=== PATIENT | female | born 1975 | race Caucasian/White ===

== ENCOUNTER 2019-10-01 10:45 | Outpatient (CLI) | payer OTHER, SELFPAY ==
--- NOTE | ~2019-10-01 | US_ITS ---
EXAMINATION: US abdomen complete EXAM DATE: 10/01/2019 11:24 INDICATION: Secondary thrombocytopenia. Splenomegaly. TECHNIQUE: Multiple grayscale and Doppler images of the complete abdomen were obtained (by a technolo gist who performed the scan) and subsequently reviewed. There is no prior study for comparison. FINDINGS: The abdominal aorta is normal in caliber. Visualized portion IVC is patent. The pancreatic head a nd body are normal in appearance. The pancreatic tail is not visualized. The liver has normal echogenicity and contour. There are no focal liver lesions identified. There is no evidence of intrahepatic biliary duct dilation. Portal venous flow was seen in the hepatopedal , normal direction and has normal Doppler waveform. Common bile duct measures 5 mm, which is normal. The gallbladder wall is normal in thickness, with ex pected amount of distention. No sonographic evidence of pericholecystic fluid. There are probably s everal tiny polyps up to 3 mm in size, not likely clinically significant. Technologist performing ex am reports patient did not demonstrate sonographic Marks's sign. Please note that this sign is less reliable in patients who have received pain medication. Right kidney: There is normal contour and echogenicity. It measures 10.7 x 3.9 x 4.5 centimeters. There are no focal renal lesions identified. There is no hydronephrosis. Left kidney: There is normal contour and echogenicity. It measures 12.7 x 3.8 x 4.9 centimeters. T here are no focal renal lesions identified. There is no hydronephrosis. The spleen measures 11.4 centimeters and is morphologically normal. IMPRESSION: 1. Tiny gallbladder polyps not likely clinically significant. Reviewed, dictated and finalized at location B. TRONIC WIRER
== END 2019-10-01 10:46 | disposition home or self-care (01) ==
LOC: ANHIMG 10:47
PROVIDERS: PCP Registered Nurse; Visit Provider Internal Medicine Hematology & Oncology
DX: D69.59 Other secondary thrombocytopenia (principal); R16.1 Splenomegaly, not elsewhere classified
CPT/HCPCS: 76700

== ENCOUNTER 2019-10-15 14:33 | Outpatient (CLI) | payer OTHER, SELFPAY ==
[2019-10-15 16:53] LABS: Iron 93 ug/dL (37-170)
[2019-10-15 17:04] LABS: Percent Iron Saturation 33 % (20-50)
[2019-10-19 02:01] LABS: Platelet Antibody, Direct IgG NEGATIVE (NEGATIVE)
== END 2019-10-15 14:34 | disposition home or self-care (01) ==
LOC: ANHLAB 14:34
PROVIDERS: PCP Registered Nurse; Visit Provider Internal Medicine Hematology & Oncology
DX: D69.59 Other secondary thrombocytopenia (principal)
CPT/HCPCS: 36415; 82728; 83540; 83550; 86023

== ENCOUNTER 2020-08-30 06:48 | Outpatient (NON) | payer OTHER, SELFPAY ==
[2020-08-30 19:32] LABS: SARS-CoV-2 RNA PCR Negative
== END 2020-08-30 06:49 ==
PROVIDERS: PCP Registered Nurse; Visit Provider Registered Nurse
DX: Z20.822 Contact with and (suspected) exposure to COVID-19 (principal); R51.9 Headache, unspecified
CPT/HCPCS: C9803; U0003

== ENCOUNTER → 2020-09-08 15:07 | Outpatient (CLI) | payer OTHER, SELFPAY ==
--- NOTE | ~2020-09-08 | MR_ITS ---
EXAMINATION: MR brain/brain stem wo/w con DATE: 09/08/2020 16:02 INDICATION: Headache without orthostatic component, not elsewhere classified. TECHNIQUE: Magnetic resonance imaging (MRI) of the brain and brainstem was performed without and with 19 mL MultiHance intravenous contrast. Sequences included sagittal and axial T1-weighted FSE, axial diffusion-weighted FS EPI, axial T2*-weighted GRE, axial T2-weighted FLAIR Propeller, and axial T2-we ighted Propeller. Postcontrast sequences included axial and coronal T1-weighted FSE. Apparent diffusi on coefficient (ADC) maps were created. COMPARISON: Head CT 05/23/2012 FINDINGS: There is no intracranial hemorrhage, acute infarction, or abnormal intracranial mass lesion . The ventricles are normal in size. The paranasal sinuses are clear. The orbits are normal. The mast oid air cells are normal. IMPRESSION: 1. Normal brain. Reviewed, dictated and finalized at location B. T CYTOLOGIST IMPRESSION: 1. Normal brain.
[2020-09-08 15:42] LABS: Estimated Glomerular Filt Rate > 60
== END ==
PROVIDERS: Visit Provider Obstetrics & Gynecology
DX: R51.9 Headache, unspecified (principal)
CPT/HCPCS: 70553; A9577

== ENCOUNTER → 2020-11-22 08:08 | Outpatient (CLI) | payer OTHER, SELFPAY ==
--- NOTE | ~2020-11-22 | MR_ITS ---
EXAMINATION: MR knee LT wo con DATE: 11/22/2020 08:56 INDICATION: Left knee pain. TECHNIQUE: Magnetic resonance imaging (MRI) of the left knee was performed without intravenous contra st. Sequences included axial PD-weighted FS FSE, coronal PD-weighted FSE and PD-weighted FS FSE, sagi ttal PD-weighted FSE, and sagittal T2-weighted FS FSE. COMPARISON: Left knee radiographs 10/29/20 FINDINGS: Medial compartment: There is a horizontal tear of posterior horn of medial meniscus with paralabral cysts measuring up to 9 mm. There is cartilage surface irregularity of tibial condyle. There is shallow partial-thickness cartilage loss of femoral condyle involving the central articular surface with mild subchondral edema -like marrow signal intensity. There are marginal osteophytes. Lateral compartment: Lateral meniscus is normal. Femoral cartilage is normal. There is shallow partial-thickness cartilage loss of tibial condyle involving the central and posterior articular surface. Osteophytes are noted. Patellofemoral compartment: There is cartilage surface irregularity of patella. There is full-thickness cartilage loss of central and lateral trochlea with mild subchondral edema-like marrow signal intensity. There is partial-thic kness cartilage loss of medial trochlea. Osteophytes are noted. Ligaments and tendons: The anterior and posterior cruciate ligaments are normal. Medial collateral ligament is intact. There are changes of prior sprain of fibular collateral ligament characterized by thickening and increased signal intensity proximally. There is mild patellar tendinopathy. Fluid: There is no knee joint effusion. There is trace fluid in a Chin's cyst. There is mild superficial in frapatellar bursitis. IMPRESSION: 1. Severe chondrosis of patellofemoral compartment and mild chondrosis of medial and lateral compartm ents. 2. Tear of medial meniscus. Reviewed, dictated and finalized at location A. IMPRESSION: 1. Severe chondrosis of patellofemoral compartment and mild chondrosis of media l and lateral compartments. 2. Tear of medial meniscus.
== END ==
PROVIDERS: Visit Provider Orthopaedic Surgery
DX: M25.562 Pain in left knee (principal); G89.29 Other chronic pain; M22.2X2 Patellofemoral disorders, left knee; S83.242A Other tear of medial meniscus, current injury, left knee, initial encounter
CPT/HCPCS: 73721

== ENCOUNTER → 2020-12-19 02:10 | Outpatient (CLI) | payer OTHER, SELFPAY ==
[2020-12-19 19:11] LABS: SARS-CoV-2 RNA PCR Negative
== END ==
PROVIDERS: PCP Registered Nurse; Visit Provider Orthopaedic Surgery
DX: Z01.812 Encounter for preprocedural laboratory examination (principal); Z20.822 Contact with and (suspected) exposure to COVID-19
CPT/HCPCS: C9803; U0003; U0005

== ENCOUNTER 2020-12-22 02:12 | Day surgery (SDC) | payer OTHER, SELFPAY ==
[2020-12-15 08:29] VITALS: BMI 34.4
[2020-12-22] VITALS (10 sets, daily range): BP systolic 107–138; BP diastolic 72–88; PULSE 74–98; RESP 12–18; TEMP 36.2–36.3; O2SAT 97–100
[2020-12-22] MEDS: LACTATED RINGERS 1,000 ML 30 ML IV CONT ×2 (07:55→09:59)
[2020-12-22] MEDS: ACETAMINOPHEN 500 MG TABLET 1000 MG PO (07:56)
[2020-12-22] MEDS: KETOROLAC 15 MG/ML VIAL (*BKC) IV PUSH (07:56)
--- NOTE | 2020-12-22 08:10 | WPDANESEPPF ---
Anes - Initial Pre Proc Eval Procedure: Operation Date: 12/22/20 09:00 Proposed Procedures p Left Knee Arthroscopy with Partial Meniscectomy - Adrien Browne MD Date/Time: 12/22/20 08:10 Surgeon: Adrien Browne MD Pre Op Diagnosis: left knee medial meniscal tear Patient Data Age: 45 Gender: F Height: 1.65 m Weight: 94 kg Allergies Allergy/AdvReac Type Severity Reaction Status Date / Time No Known Allergies Allergy Unverified 12/15/20 08:25 Home Medications Medication Instructions Recorded Confirmed Type meloxicam 15 mg tablet 15 mg PO DAILY #30 tablet 10/29/20 12/15/20 Rx acetaminophen 650 mg 650 mg PO BID 11/25/20 12/15/20 History tablet,extended release cholecalciferol (vitamin D3) 75 mcg PO DAILY 12/15/20 12/15/20 History [Vitamin D3] cyanocobalamin-liver extract 1 tablet PO DAILY 12/15/20 12/15/20 History [Vitamin P57-Qfdod] fexofenadine-pseudoephedrine 1 tablet PO DAILY PRN 12/15/20 12/15/20 History [Sintia-D 12 Hour] ysszijob-tujtq-esf6-C-stephanie-bor 1 tablet PO DAILY 12/15/20 12/15/20 History [Otpserftxnt-Kfeso-WNH Complex] omega-3 fatty acids-vitamin E 2 cap PO DAILY 12/15/20 12/15/20 History [Fish Oil] Patient hx anesthesia problems: none Family hx anesthesia problems: none PMFSH Past Medical History Medical History (Updated 12/19/20 @ 15:33 by Ivan Tran DO) Anxiety Degenerative arthritis of knee, bilateral Headache Tear of medial meniscus of left knee Surgical History Surgical History (Updated 12/19/20 @ 15:33 by Ivan Tran DO) History of arthroscopic knee surgery right x2, left x1 History of hysterectomy Family History Family History Other Alcohol abuse Cancer Heart disease Social History Social History Smoking status: Never smoker Second hand tobacco smoke exposure: Yes Alcohol intake: current 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 Substance use: current Other substance usage details: CBD CARAMELS Living arrangements: with family 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, 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 Gender identity (if verbalized by the patient): Female Spiritual care concerns: No Anes - Eval Final PreProcedure Day of Procedure 12/22/20 08:10 Patient weight: obese Heart: regular rate and rhythm Lungs: clear to auscultation and normal air movement Airway: Mallampati scale class II Neurological: alert and oriented Last oral intake: >/= 8 hours ASA classification: II Emergent: no Anesthetic plan: proceed Anesthesia type and monitoring: general LMA and standard monitoring Informed Consent: The patient's anesthetic plan and its attendant risks and benefits were discussed with the patient/family/POA. Questions were solicited and answers provided to the satisfaction of the patient/family/POA.
--- NOTE | 2020-12-22 08:38 | WPDHPUPDATE1 ---
History and Physical Update Update Date/Time: 12/22/20 08:38 History and Physical has been reviewed, including an updated exam of the patient. There are NO changes in the patient's condition. Risks, benefits, and alternatives have been discussed and questions answered. Patient agrees to proceed with procedure.
[2020-12-22] MEDS: ceFAZolin 2 GM/D5W 50 ML 2 GM/50 ML BAG IVPB (08:55)
--- NOTE | 2020-12-22 10:06 | P.OP_ITS ---
Procedure Note - Detailed Date of procedure: 12/22/20 Pre-op diagnosis: left knee medial meniscal tear Post-op diagnosis: other (Left knee medial meniscal tear and extensive synovitis) Procedure performed: Left knee arthroscopy, partial medial meniscectomy, extensive synovectomy Description of procedure: The patient was identified and proper site identified. She was taken to the operating room and transferred to the OR table placing her supine taking care to pad the torso and extremities. After general anesthetic induction and intubation, a nonsterile tourniquet was placed high on the left thigh but it was not inflated. The left lower extremity was positioned, prepped and draped in usual sterile fashion. 10 cc of 1% lidocaine was injected into the subcutaneous tissue in the area of the portals at start of the procedure, and an additional 10 at the end. The portals were established and the arthroscopy was carried out. Articular cartilage in the lateral compartment was in excellent shape. Anteriorly there was grade 3 changes in the femoral trochlea, grade 2 on the undersurface of the patella. There is grade 2 changes through the medial compartment articular cartilage. There was complex tearing of the medial meniscus posterior horn into the midbody. This was contoured back to stable rim with basket forceps and a shaver. There was an extensive amount of synovitis along the medial femoral condyle throughout the m edial gutter which was quite hyperemic. This area was extensively debrided with the shaver and the ArthroCare Wand used for hemostasis. The knee was flushed with a copious amount of arthroscopic fluid and equipment was removed. Portals were closed with three O nylon suture and a sterile dressing was applied. She tolerated the procedure well, was awakened, extubated and taken to recovery area in stable condition. There were no known intraoperative complications. Estimated blood loss was negligible. She received perioperative antibiotics. Anesthesia: GLMA Surgeon: Adrien Browne MD Estimated blood loss (mL): 15 Tourniquet time (min): 0 Drains: No Packing: No Pathology: none sent Complications: No immediate complications Condition: stable Disposition: PACU
[2020-12-22] MEDS: fentaNYL CITRATE INJ (*CRX) 100 MCG/2 ML VIAL 25 MCG IV PUSH ×3 (10:08→11:01)
[2020-12-22] MEDS: oxyCODONE HCL (*CRX) 5 MG TAB IR PO (11:40)
== END 2020-12-22 12:23 | disposition home or self-care (01) ==
PROVIDERS: PCP Registered Nurse; Visit Provider Orthopaedic Surgery
PROC: (CPT 29870; principal; 2020-12-22 09:00)
DX: S83.232A Complex tear of medial meniscus, current injury, left knee, initial encounter (principal); M65.9 Synovitis and tenosynovitis, unspecified; M17.12 Unilateral primary osteoarthritis, left knee; E66.9 Obesity, unspecified; Z68.34 Body mass index [BMI] 34.0-34.9, adult; Z87.891 Personal history of nicotine dependence; X58.XXXA Exposure to other specified factors, initial encounter; Y93.9 Activity, unspecified; Y92.9 Unspecified place or not applicable; Y99.9 Unspecified external cause status
CPT/HCPCS: 29881; A9270; C9803; J0690; J1100; J1170; J1200; J1885; J2250; J2405; J2704; J3010; J7120; U0003; U0005

== ENCOUNTER 2021-01-07 08:30 | Outpatient (RCR) | payer OTHER, SELFPAY ==
--- NOTE | 2020-12-24 13:40 | PTOPEVAL ---
PHYSICAL THERAPY EVALUATION Thank you for referring Lovely Torres to [facility].? Lovely was evaluated for the dx of left knee MT/OA with knee scope. The patient is scheduled to be seen for therapy?2 x/week for 4 weeks. Please review, sign, date and return this plan of care ANNY. I agree with and certify that the following plan of care is medically necessary. Referring Physician Date Attending Provider: Adrien Browne MD *PT Outpatient Evaluation Start: 12/24/20 12:41 Freq: Status: Active Protocol: Document 12/24/20 12:41 MLV (Rec: 12/24/20 13:25 MLV [id number]) Therapy Assessment Status Assessment Status Evaluation Evaluation Information Problem Diagnosis 12/22/20 left knee scope due to MT and OA Onset 3 months Cause no injury Additional Evaluation Detail The patient has had 2 prior surgeries to her knee but this one has been more painful than the others. She also had a lot more pain prior to the surgery. 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 The knee required modifying her normal activities and wants to go back to doing things normal again. Diagnostic Tests MRI For This Problem Yes: MT, OA Previous Treatments Previous Treatments For This Problem none Pain Assessment Timing of Pain Assessment Timing of Pain Assessment Assessment Pain Scale Pain Scale Used Numeric (1 - 10) Self Report Pain Assessment Left Knee(s) Reported Pain Level 0 Pain Description Dull Pain Frequency Acute,Chronic Other Pain Description 6 with walking Pain Aggravating Factors Walking,Weight Bearing/ Standing Other Pain Aggravating Factors elevating and ice bothered it yesterday Pain Behaviors Anxious,Restless Pain Score Pain Score 0: Self Report Interventions Used Interventions Used By Clinicians Education,Exercise Pain Relief Interventions Used By Inactivity/Rest,Medication, Patient Position Change Other Alleviating Interventions pain meds Lower Extremity Range of Motion General Lower Extremity Range of Motion Reason Not Measured WNL/Left,WNL/Right Gross Lower Extremity Range of Motion right knee active motion 0-130 Comments degrees; left knee 0-107 degrees.
--- NOTE | 2020-12-24 13:52 | PTOPEVAL ---
PHYSICAL THERAPY EVALUATION Thank you for referring Lovely Torres to [facility].? Lovely was evaluated for the dx of left knee MT/OA with knee scope. The patient is scheduled to be seen for therapy? 2x/week for 4 weeks. Please review, sign, date and return this plan of care ANNY. I agree with and certify that the following plan of care is medically necessary. Referring Physician Date Attending Provider: Adrien Browne MD *PT Outpatient Evaluation Start: 12/24/20 12:41 Freq: Status: Active Protocol: Document 12/24/20 12:41 MLV (Rec: 12/24/20 13:25 MLV [email or web address]) Therapy Assessment Status Assessment Status Evaluation Evaluation Information Problem Diagnosis 12/22/20 left knee scope due to MT and OA Onset 3 months Cause no injury Additional Evaluation Detail The patient has had 2 prior surgeries to her knee but this one has been more painful than the others. She also had a lot more pain prior to the surgery. 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 The knee required modifying her normal activities and wants to go back to doing things normal again. Currently, her spouse and children are doing the housework and cooking due to her limits with mobility. Diagnostic Tests MRI For This Problem Yes: MT, OA Previous Treatments Previous Treatments For This Problem none Pain Assessment Timing of Pain Assessment Timing of Pain Assessment Assessment Pain Scale Pain Scale Used Numeric (1 - 10) Self Report Pain Assessment Left Knee(s) Reported Pain Level 0 Pain Description Dull Pain Frequency Acute,Chronic Other Pain Description 6 with walking Pain Aggravating Factors Walking,Weight Bearing/ Standing Other Pain Aggravating Factors elevating and ice bothered it yesterday Pain Behaviors Anxious,Restless Pain Score Pain Score 0: Self Report Interventions Used Interventions Used By Clinicians Education,Exercise Pain Relief Interventions Used By Inactivity/Rest,Medication, Patient Position Change Other Alleviating Interventions pain meds Lower Extremity Range of Motion General Lower Extremity Range of Motion Reason Not Measured
--- NOTE | 2021-01-13 13:44 | PCPTNOTE ---
Addendum entered by Jodee Llamas, CHLORINE CELL TENDER 01/13/21 14:19: Patient was discharged from therapy last week. Note was done in error. Original Note: Patient did not show up for scheduled appointment this date. Called & left a message.
--- NOTE | 2021-01-28 08:52 | PCPTNOTE ---
PHYSICAL THERAPY DISCHARGE Attending Provider: Adrien Browne MD Patient:Lovely Torres Date of :1975 Patient has not returned for any further treatments; Lovely had met her goals and is continuing her exercises on her own. She will be discharged at this time. Patient?s initial visit was on 12/24/2020 12:30 and she had a total of 5 visits. Thank you for referring this patient to [facility]. Please review, sign, date and return this discharge summary ANNY. I have been updated about the patient's current status and I agree with discharge from the above service at this time. Referring Physician Date
== END 2021-01-28 12:48 | disposition home or self-care (01) ==
LOC: ANHPT 08:30
PROVIDERS: PCP Registered Nurse; Visit Provider Orthopaedic Surgery
DX: Z48.89 Encounter for other specified surgical aftercare (principal)
CPT/HCPCS: 97014; 97110; 97162; G0283

== ENCOUNTER 2022-11-25 16:07 | Outpatient (CLI) | payer OTHER, SELFPAY ==
--- NOTE | ~2022-11-25 | MM_ITS ---
EXAMINATION: MM screening ilana BI w marichuy HISTORY: Screening TECHNIQUE: Craniocaudal and mediolateral oblique 3-D tomosynthesis images were obtained and synthetic 2-D images were generated. CAD analysis was submitted and interpreted. COMPARISON: Comparison to multiple prior studies sequentially, with oldest reviewed study dated 04/05 BREAST PARENCHYMAL COMPOSITION: There are scattered areas of fibroglandular density. FINDINGS: There is no evidence of suspicious mass, calcification, or architectural distortion to sugg est malignancy in either breast. There has been no suspicious interval change. IMPRESSION: 1. No mammographic evidence of malignancy. 2. Recommend routine screening mammography in one year. BI-RADS Category 1: Negative Reviewed, dictated and finalized at location A.
== END 2022-11-25 16:08 | disposition home or self-care (01) ==
PROVIDERS: PCP Registered Nurse; Visit Provider Obstetrics & Gynecology
DX: Z12.31 Encounter for screening mammogram for malignant neoplasm of breast (principal)
CPT/HCPCS: 77063; 77067

== ENCOUNTER → 2022-12-16 13:24 | Outpatient (CLI) | payer OTHER, SELFPAY ==
--- NOTE | ~2022-12-16 | US_ITS ---
EXAMINATION: US thyroid DATE: 12/16/2022 13:58 INDICATION: Dysphagia, pharyngeal phase. TECHNIQUE: Multiple ultrasound images of the thyroid were obtained. COMPARISON: None. FINDINGS: The right thyroid lobe measures 5.4 x 1.2 x 1.3 cm. The left thyroid lobe measures 4.5 x 1.1 x 1.6 c m. In the left thyroid lobe, there is a 7 mm solid, hypoechoic, wider than tall nodule with ill-defi eliza margin without echogenic foci (TI-RADS TR4). IMPRESSION: 1. Small thyroid nodule, likely not clinically significant. No follow-up is needed. Reviewed, dictated and finalized at location E. IMPRESSION: 1. Small thyroid nodule, likely not clinically significant. No follow-up is nee ded.
== END ==
PROVIDERS: PCP Registered Nurse; Visit Provider Registered Nurse
DX: R13.13 Dysphagia, pharyngeal phase (principal); E04.1 Nontoxic single thyroid nodule
CPT/HCPCS: 76536

== ENCOUNTER 2023-09-16 05:50 | Day surgery (SDC) | payer OTHER, SELFPAY ==
[2023-09-02 14:31] VITALS: BMI 36.6
--- NOTE | 2023-09-15 15:22 | WPDANESEPPF ---
Anes - Initial Pre Proc Eval Procedure: Operation Date: 09/16/23 07:30 Proposed Procedures p Lapidus Bunionectomy Right Foot, Branden Phalangeal Osteotomy Right Hallux - Wilman Brown JR, MD Date/Time: 09/15/23 15:22 Surgeon: Wilman Brown JR, MD Pre Op Diagnosis: Bunion Right Foot Patient Data Age: 48 Gender: F Height: 1.68 m Weight: 103 kg Allergies Allergy/AdvReac Type Severity Reaction Status Date / Time No Known Allergies Allergy Unverified 09/16/23 06:11 Home Medications Medication Instructions Recorded Confirmed Type cholecalciferol (vitamin D3) 25 75 mcg PO DAILY 12/15/20 09/16/23 History mcg (1,000 unit) tablet (Vitamin D3) glucosamine 375 if-suixhshgo-tie 1 tablet PO DAILY 12/15/20 09/16/23 History no1 500 mg-C 15 mg-stephanie 0.5 mg tablet (Yxlhetyrbvo-Shfrhdvkvek-SZG Complex) omega-3 fatty acids-vitamin E 2 cap PO DAILY 12/15/20 09/16/23 History 1,000 mg capsule meloxicam 15 mg tablet (Mobic) 15 mg PO DAILY #30 tabs 03/02/21 09/16/23 Rx estradiol 2 mg tablet 2 mg PO DAILY 09/02/23 09/16/23 History Patient hx anesthesia problems: none Family hx anesthesia problems: none Results Review: All pre-operative results and documents have been reviewed as part of the pre-operative evaluation. [facility] Past Medical History Medical History (Updated 09/15/23 @ 15:22 by Ivan Tran DO) Anxiety Degenerative arthritis of knee, bilateral Headache Osteoarthritis Surgical History Surgical History History of arthroscopic knee surgery right x2, left x2 History of hysterectomy Tear of medial meniscus of left knee Left knee scope December 22, 2020 -partial meniscectomy and synovectomy Family History Family History Other Alcohol abuse Cancer Heart disease Social History Social History Smoking status: Never smoker Second hand tobacco smoke exposure: No Alcohol intake: former 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 Substance use: current Substance use type: marijuana Other substance usage details: CBD CARAMELS Living arrangements: with family 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 Informed Consent: The patient's anesthetic plan and its attendant risks and benefits were discussed with the patient/family/POA. Questions were solicited and answers provided to the satisfaction of the patient/family/POA.
[2023-09-16] VITALS (11 sets, daily range): BP systolic 109–129; BP diastolic 70–86; PULSE 66–85; RESP 12–20; TEMP 36.1–37; O2SAT 98–100
--- NOTE | ~2023-09-16 | XR_ITS ---
EXAMINATION: XR surgery orthopedic DATE: 09/16/2023 10:43 INDICATION: Right foot bunion. TECHNIQUE: 4 intraoperative fluoroscopic views of right foot were obtained. I was not present. Fluoro scopy exposure time was 49 seconds. COMPARISON: None. FINDINGS: There is moderate hallux valgus. There is mild osteoarthritis of first metatarsophalangeal joint. This demonstrate an osteotomy of first proximal phalanx with staple fixation. There are change s of fusion procedure with dorsal plate and screws at the first tarsometatarsal joint with additional screw passing into the base of second metatarsal. IMPRESSION: 1. Fusion procedure involving the first tarsometatarsal joint and base of second metatarsal. 2. Osteotomy of first proximal phalanx. Reviewed, dictated and finalized at location E. CONTROL ELECTRONICS OPERATOR IMPRESSION: 1. Fusion procedure involving the first tarsometatarsal joint and base of secon d metatarsal. 2. Osteotomy of first proximal phalanx.
[2023-09-16] MEDS: LACTATED RINGERS 1,000 ML 30 ML IV CONT (06:38)
--- NOTE | 2023-09-16 07:07 | WPDANESPNB ---
Anes - Peripheral Nerve Block Date/Time: 09/16/23 07:07 I have discussed with the patient/family/POA the placement of a peripheral nerve block for post-operative pain management, including associated risks, benefits, complications, and side effects. Alternative methods of post-operative analgesia were detailed. Questions were solicited and answers provided to the satisfaction of the patient/family/POA. Time-Out: A pre-procedural Time-Out was completed immediately before starting the procedure and confirmed: Patient Identification, Site, Procedure, Patient Position and the Availability of Requisite Equipment. Clinical Indications: Acute post-operative pain management requested by the operative surgeon. Nerve Block Insertion Note Anes-nerve block: posterior fossa sciatic right and adductor canal right Patient position: supine (for adductor canal) and other (right lateral for popliteal) Skin prep: chlorhexidine Needle: 22 gauge, stimulating, insulated echogenic needle. Needle length: 80 mm Technique: nerve stimulation lost at (mA) (for popliteal lost at 0.2) and ultrasound Injectate: bupivacaine 0.5% with epi 5 mcg/ml (20 mL for popliteal, 10 mL for adductor canal (no epi)) Observations: tolerated well Complications: none Procedure start time:: 714 Procedure end time:: 721
--- NOTE | 2023-09-16 07:11 | WPDHPUPDATE1 ---
History and Physical Update Update Date/Time: 09/16/23 07:11 History and Physical has been reviewed, including an updated exam of the patient. There are NO changes in the patient's condition. Risks, benefits, and alternatives have been discussed and questions answered. Patient agrees to proceed with procedure.
[2023-09-16] MEDS: ceFAZolin SODIUM 2 GM/20 ML SW SYRINGE IV PUSH (07:28)
--- NOTE | 2023-09-16 09:40 | W.PM.PROC2 ---
Procedure Note - Detailed Date of Procedure 09/16/23 Pre-op Diagnosis Bunion Right Foot Post-op Diagnosis Same Procedure Performed 1. Lapidus bunionectomy right foot 2. Branden Phalangeal osteotomy right foot Surgeon Wilman Brown JR, DPM Anesthesia General and Regional Indications Paiful right forefoot Description of Procedure Under mild sedation, the patient was brought to the operating room, placed on the operating table in the supine position.? A pneumatic ankle tourniquet was placed about the patient's ankle. Following general anesthesia and a previous popliteal fossa block, the foot was then scrubbed, prepped, and draped in the usual aseptic manner.? An Esmarch bandage was then used to examine the patient's foot and pneumatic ankle tourniquet was then inflated. ? Surgery began in the following manner.? Attention was directed to the dorsal aspect of the 1st metatarsocuneiform of the foot where fluoroscopy was used to identify the joint. ? A 3 cm incision was made overlying the dorsal aspect of the 1st metatarsocuneiform joint of the foot just medial to the extensor hallucis longus tendon.? The incision was then continued deep down through the subcutaneous tissues using sharp and blunt dissection.? All bleeders were ligated and cauterized as necessary.? At this point, the extensor tendon was identified and reflected laterally.? Next, the periosteum and capsular incision was made at the full length of the skin incision exposing the medial cuneiform as well as the base of the 1st metatarsal.? Next, a sagittal bone saw was introduced from dorsal to plantar across the 1st metatarsocuneiform joint in order to free up any ankylosed portions of the joint and also to release any adhesions. Two Steinmann Pins were driven from dorsal to plantar 1cm proximal and distal to the 1st metatarsal cuneiform joint. Next, a sharp curved osteotome and curette was used to resect the cartilage and subchondral bone and a 2.0mm drill bit was used to fenestrate the joint to promote fusion. ? At this point, a small 1 cm incision was made along the medial aspect of the 1st intermetatarsal space just medial to the second metatarsal head. Next, a lateral release consisting of a lateral capsule incision as well as release of the adductor hallucis tendon with the tenotomy as well as releasing the distal aspect and lateral aspect and proximal aspect of the fibular sesamoid.? After this, a lateral release was performed.? The hallux lateral deviation was noted to be reduced as far as the track-bound hallux. Next a 3cm incision was made medial to the first metatarsal head extending proximal to the proximal phalanx.? A 0.062 K wire was driven from dorsal medial to plantar lateral across the 1st metatarsal head and a second 0.062 K wire driven from the dorsal aspect of the second metatarsal head. Next the Arthrex Lapidus clamp was used to obtain 3 plane correction of the hallux abductovalgus deformity. Fluoroscopy was used to make sure that the 1st MPJ was congruous and the sesamoid apparatus was centered under the first metatarsal and also to make certain that there was no elavatus of the first ray. ? Next, an Arthrex QuickFix 4.0 mm cannulated screw was driven from the medial base of the 1st metatarsal to the second metatarsal base under fluoroscopic guidance Excellent compression was noted across the joint. Moreover, the Arthrex dorsal Lapidus T- plate was placed along the dorsal medial aspect of the 1st metatarsal cuneiform joint and the two 3.5mm proximal locking screws were drilled from dorsal to plantar. Next the one eccentrically drilled non locking screws was used to further compress the joint to ensure arthrodesis. Finally the most distal 3.5mm locking screw was drilled from dorsal to plantar across the plate into the metatarsal shaft. At this point the positioner was removed and fluoroscopy was used to make sure that the deformity correction was maintained. The pat
[2023-09-16] MEDS: fentaNYL CITRATE INJ (*CRX) 100 MCG/2 ML VIAL 25 MCG IV PUSH ×4 (09:45→10:17)
--- NOTE | 2023-09-16 10:38 | WPDANESPN ---
Anes - Prog Note Post-Op Date/Time: 09/16/23 10:38 Cardiovascular status: normal Respiratory status: normal Airway patency: baseline Mental status: baseline Post-Op hydration status: normal Vital Signs: Last Vital Signs Temp 36.1 C L 09/16/23 09:25 Pulse 76 09/16/23 10:20 Resp 15 09/16/23 10:20 BP 110/77 09/16/23 10:20 Pulse Ox 99 09/16/23 10:20 O2 Del Method Room Air 09/16/23 10:20 O2 Flow Rate 8 09/16/23 09:35 Pain Score (VAS): 3 I/O: Intake & Output 09/15/23 09/16/23 09/16/23 23:59 07:59 15:59 Intake Total 950 Balance 950 Post-procedural complaints: none Patient Feedback: Patient satisfied with anesthetic care. Other Findings: Patient vital signs back to baseline. Patient denies nausea and vomiting. Patient's pain under control. Patient OK for discharge.
== END 2023-09-16 11:04 | disposition home or self-care (01) ==
PROVIDERS: PCP Registered Nurse; Visit Provider Podiatrist Foot & Ankle Surgery
PROC: (CPT 28299; principal; 2023-09-16 07:30)
DX: M21.611 Bunion of right foot (principal)
CPT/HCPCS: 28297; 28310; 99199; L8699

== ENCOUNTER 2025-01-16 08:17 | Outpatient (CLI) | payer OTHER, SELFPAY ==
--- NOTE | ~2025-01-16 | XR_ITS ---
AP and lateral views of the left hip Clinical history: Pain Findings: No acute fracture or dislocation is seen. Osseous alignment is anatomic. Left hip joint is intact. Soft tissues are unremarkable. Impression: No significant abnormality is seen. Reviewed, dictated and finalized at location M. Impression: No significant abnormality is seen.
--- NOTE | ~2025-01-16 | XR_ITS ---
Left Shoulder Technique: AP and axillary views were obtained. Clinical History: Pain Findings: No fracture or dislocation is seen. Osseous alignment is anatomic. The glenohumeral joint i s intact. There is mild AC joint degenerative change. Soft tissues are unremarkable. Impression: Mild AC joint degenerative change. Reviewed, dictated and finalized at location . Impression: Mild AC joint degenerative change.
--- NOTE | ~2025-01-16 | XR_ITS ---
XR hip RT min 2V 01/16/2025 09:06 Indication: Right hip pain Procedure: 2 views right hip Comparison: No prior studies for comparison. Findings: There is anatomic alignment. No fracture, subluxation or dislocation. No soft tissue abnorm ality. No foreign bodies. There is a small bone island in the femoral neck. Impression: 1: No significant bone or joint abnormalities. Reviewed, dictated and finalized at location A. Impression: 1: No significant bone or joint abnormalities.
--- NOTE | ~2025-01-16 | XR_ITS ---
Right Shoulder Technique: AP and axillary views were obtained. Clinical History: Pain Findings: No fracture or dislocation is seen. Osseous alignment is anatomic. The glenohumeral and acr omioclavicular joint spaces are preserved. Soft tissues are unremarkable. Impression: Unremarkable right shoulder radiographs. Reviewed, dictated and finalized at [facility]. Impression: Unremarkable right shoulder radiographs.
--- OUTSIDE RECORDS SUMMARY | 2025-01-16 08:23 | XMS_ITS | Clinical Summary ---
Author Organization [facility] Address [address] [place] [address] Care Team Providers Care Molding Associate Name Role Phone Abdifatah Miguel MD Primary Care Provider [phone] Allergies No known active allergies Medications estradioL (ESTRACE) 2 mg tablet Take 1 tablet (2 mg total) by mouth daily 07/15/2023 Active cyanocobalamin, vitamin B-12, 250 mcg lozenge Take by mouth Active cholecalciferol (VITAMIN D-3) 2000 unit tablet Take 1 tablet (2,000 Units total) by mouth daily Active docosahexaenoic acid/epa (FISH OIL ORAL) Take by mouth Active ZINC GLUCONATE ORAL Take by mouth Active MAGNESIUM GLUCONATE ORAL Take by mouth Active UNABLE TO FIND Tumeric Activ e naproxen sodium (ALEVE ORAL) Take by mouth Active Active Problems Problem Noted Date Diagnosed Date Varicose veins of bilateral lower extremities wi th pain 08/09/2023 Assessment & Plan (11/17/2023 1:07 PM CDT): Symptomatic varicosities to the left lower extremity. Discussed the importance of compression therapy. She will follow up in 3 months if still symptomatic to discuss left lower extremity stab phlebectomies. Assessment & Plan (08/09/2023 11:51 AM CHEMICAL EQUIPMENT SALES ENGINEER): Impression: Patient complains of heaviness and discomfort to bilateral lower extremities with prolonged standing despite compression therapy. She denies any open ulcerations or history of DVTs/PEs or hypercoagulable state. Patient has a varicose vein to the left medial calf. Plan: Recommend patient to continue utilizing compression therapy. -patient to follow-up in 3 months for re-evaluation with venous reflux. Other secondary thrombocytopenia 09/20/2019 08/08/2023 Bilateral carpal tunnel syndrome 06/19/2019 08/08/2023 Chronic daily headache 06/19/2019 Current moderate episode of major depressive disorder without prior episode 06/19/2019 08/08/2023 Internal hemorrhoids 06/19/2019 08/08/2023 Neck pain 06/19/2019 08/08/2023 Paresthesias 06/19/2019 08/08/2023 Polyarthralgia 06/19/2019 08/08/2023 Primary osteoarthritis of both knees 06/19/2019 08/08/2023 Surgical History Surgery Date Site/Laterality Comments PARTIAL HYSTERECTOMY KNEE ARTHROSCOPY W/ MENISCECTOMY Bilatera l Medical History Medical History Date Comments Carpal tunnel syndrome Osteoarthritis Polyarthralgia Thrombocytosis Thrombocytopenia Family History Medical History Relation Name Comments Cardiomyopathy Father Brain Aneurysm Mother Hyperthyroidism Mother Relation Name Status Comments Father Mother Alive Social History Tobacco Use Types Packs/Day Years Used Date Smoking Tobacco: Never Tobacco Cessation:Counseling Given: Not Answered Personal Safety Answer Date Recorded Getting School Help Needed Not on file 08/06 Comments Unknown Sex and Gender Information Value Date Recorded Sex Assigned at Not on file Legal Sex Female 12:17 PM CHEMICAL EQUIPMENT SALES ENGINEER Gender Identity Not on file Sexual Orientation Not on file Obstetrics History Last Filed Vital Signs Vital Sign Reading Time Taken Comments Blood Pressure 135/83 11/16/2023 8:29 AM CDT Pulse 85 11/16/2023 8:29 AM CDT Temperature - - Respiratory Rate - - Oxygen Saturation 93% 11/16/2023 8:29 AM CDT Inhaled Oxygen Concentration - - Weight 95.3 kg (210 lb) 08/08/2023 2:10 PM CHEMICAL EQUIPMENT SALES ENGINEER Height 167.6 cm (5' 6) 08/08/2023 2:10 PM CHEMICAL EQUIPMENT SALES ENGINEER Body Mass Index 33.89 08/08/2023 2:10 PM CHEMICAL EQUIPMENT SALES ENGINEER Plan of Treatment Health Maintenance Due Date Last Done Comments Breast Cancer Screening-Mammogram 1976 Cervical Cancer Screening 1976 Colon Cancer Screening-Colonoscopy 1976 Depression Screening 1976 Hepatitis C Screening 1976 DTaP/Tdap/Td Vaccine (1 - Tdap) 1987 Hepatitis B Screening 1994 Regular Well Visit/Exam 18-64 1994 Covid-19 Vaccine (3 2023-2 5 season) 2024 04/16/2021, 03/19/2021 Influenza Vaccine (Season Ended) 2025 Pneumococcal vaccine <65 Aged Out No longer eligible based on patient's age to complete this topic Insurance [facility] Care Teams Molding Associate Relationship Specialty Start Date End Date Abdifatah Miguel MD [address] [address] PCP - General Obstetrics and Gynecology 07/11/23
--- OUTSIDE RECORDS SUMMARY | 2025-01-16 08:23 | XMS_ITS | Clinical Summary ---
Author Organization [facility] Stacy Carey Address [address] [place] [address] Care Team Providers Care House Decorator Name Role Phone Katie Arriaza NP Primary Care Provider + Allergies No known active allergies Medications cyclobenzaprine (FLEXERIL) 5 mg Tablet 09/10/2019 Active DULoxetine (CYMBALTA) 30 mg Capsule, Delayed Release(E.C.) 07/15/2019 Activ e Active Problems Problem Noted Date Diagnosed Date Other secondary thrombocytopenia 09/20/2019 Family History Relation Name Status Comments Brother Alive Daughter Alive Father Alive Mother Alive Son Alive Social History Tobacco Use Types Packs/Day Years Used Date Smoking Tobacco: Never Smokeless Tobacco: Current Tobacco Cessation:Ready to Q uit: No; Counseling Given: No Alcohol Use Standard Drinks/Week Comments Not Currently 0 (1 standard drink = 0.6 oz pur e alcohol) Comments No Sex and Gender Information Value Date Recorded Sex Assigned at Not on file Legal Sex Female 8:24 AM DIRECTOR OF FUNDRAISING Gender Identity Not on file Sexual Orientation Not on file Last Filed Vital Signs Vital Sign Reading Time Taken Comments Blood Pressure 114/74 10/11/2019 2:35 PM DIRECTOR OF FUNDRAISING Pulse 89 10/11/2019 2:35 PM DIRECTOR OF FUNDRAISING Temperature 36.7 C (98 F) 10/11/2019 2:35 PM DIRECTOR OF FUNDRAISING Respiratory Rate - - Oxygen Saturation 98% 10/11/2019 2:35 PM DIRECTOR OF FUNDRAISING Inhaled Oxygen Concentration - - Weight 89.9 kg (198 lb 4.8 oz) 10/11/2019 2:35 P M DIRECTOR OF FUNDRAISING Height 170.2 cm (5' 7) 10/11/2019 2:35 PM DIRECTOR OF FUNDRAISING Body Mass Index 31.06 10/11/2019 2:35 PM DIRECTOR OF FUNDRAISING Plan of Treatment Health Maintenance Due Date Last Done Comments Pre-Diabetes and Diabetes Screening 1976 DTAP/TDAP/TD VACCINES (1 - Tdap) 1995 HEPATITIS B VACCINES (1 of 3 - 19+ 3-dose series) 02/1995 BREAST CANCER SCREENING 2016 COLORECTAL SCREENING 2021 Colorectal Cancer Screening 2021 FIT-DNA Q 3 years 2021 FIT/FOBT Q 1 year 2021 Flex Sig/CT Colonography Q 5 years 2021 INFLUENZA VACCINE (#1) 2024 Care Teams House Decorator Relationship Specialty Start Date End Date Katie Arriaza NP [address] [place] [id number] PCP - General NURSE PRACTITIONER 09/20/19
--- OUTSIDE RECORDS SUMMARY | 2025-01-16 08:23 | XMS_ITS | Clinical Summary ---
Author Organization [facility] Address [address] [place] [address] Care Team Providers Care Make Ready Worker Name Role Phone Sabas Acosta MD Primary Care Provider [phone] Source Comments [facility],non-owned Affiliates and Associated Physician Practices is amultiple site organization consisting of ambulatory clinics and hospital sitesin [place], [place], [place] and [place]. This disclosure is being madepursuant to the Care Everywhere program and may not contain all information available regarding this patient. Last updated 18.[facility] Allergies No known active allergies Medications * Be aware that medications may not be up to date on this document. Alwaysverify current medications with the patient. No known medications Active Problems No known active problems Social History Tobacco Use Types Packs/Day Years Used Date Smoking Tobacco: Never Assessed Comments Unknown Sex and Gender Information Value Date Recorded Sex Assigned at Not on file Legal Sex Female 9:00 AM CDT Gender Identity Not on file Sexual Orientation Not on file Last Filed Vital Signs Vital Sign Reading Time Taken Comments Blood Pressure 122/80 01/26/2019 10:43 AM CDT Pulse 80 01/26/2019 10:43 AM CDT Temperature 37.1 C (98.7 F) 01/26/2019 10:43 AM CDT Respiratory Rate 16 01/26/2019 10:43 AM CDT Oxygen Saturation 97% 01/26/2019 10:43 AM CDT Inhaled Oxygen Concentration - - Weight 86.2 kg (190 lb) 01/26/2019 10:43 AM CDT Height 167.6 cm (5' 6) 01/26/2019 10:43 AM CDT Body Mass Index 30.67 01/26/2019 10:43 AM CDT Plan of Treatment Health Maintenance Due Date Last Done Comments COLOGUARD (AGES 45-75) - COL ON CA SCREENING 1976 COLON MONITORING 1976 COLONOSCOPY - COLON CA SCREENING 1976 CT COLONOGRAPHY - COLON CA SCREENING 1976 Colorectal Cancer Screening 1976 FIT - COLON CA SCREENING 1976 FLEX SIG - COLON CA SCREENING 1976 LIPID TESTING 1976 MAMMOGRAM 1976 HIV SCREENING 1991 HEPATITIS C SCREENING 04/24/1994 DTAP/TDAP/TD VACCINES (1 - Tdap) 1995 HEPATITIS B VACCINE (1 of 3 - 19+ 3-dose series) 1995 SCREENING FOR DIABETES 01/26/2019 COVID-19 VACCINE (1 - 2023-2 5 season) 2024 DEPRESSION SCREENING 08/22/2024 INFLUENZA VACCINE (Season Ended) 2025 ZOSTER VACCINE (1 of 2) 2026 HIB VACCINE Aged Out No longer eligi ble based on patient's age to complete this topic HPV VACCINE Aged Out No longer eligi ble based on patient's age to complete this topic MENINGOCOCCAL (Group B) VACC INE SHARED DECISION-MAKING Aged Out No longer eligibl e based on patient's age to complete this topic MENINGOCOCCAL GROUPS A/C/Y/W VACCINE Aged Out No longer eligible b ased on patient's age to complete this topic PNEUMOCOCCAL VACCINE Aged Out No long er eligible based on patient's age to complete this topic Insurance [employer] Care Teams Make Ready Worker Relationship Specialty Start Date End Date Sabas Acosta MD [address] [place] [address] PCP - General 01/03/18
--- OUTSIDE RECORDS SUMMARY | 2025-01-16 08:23 | XMS_ITS | Referral Summary ---
Author Organization [facility] Address [address] [place] [address] Care Team Providers Care Cryptoanalysis Teacher Name Role Phone Abdifatah Miguel MD Primary Care Provider [phone] Allergies No known active allergies Medications estradioL [...] phlebectomies. Assessment & Plan (08/09/2023 11:51 AM FARMWORKER): Impression: Patient complains of heaviness and discomfort [...] Primary osteoarthritis of both knees 06/19/2019 08/08/2023 Social History Tobacco Use Types Packs/Day Years Used Date Smoking Tobacco: Never Tobacco Cessation:Counseling Given: Not Answered Personal Safety Answer Date Recorded Getting School Help Needed Not on file 08/06 Comments Unknown Sex and Gender Information Value Date Recorded Sex Assigned at Not on file Legal Sex Female 12:17 PM FARMWORKER Gender Identity Not on file Sexual Orientation Not on file Last Filed Vital Signs Vital Sign Reading Time Taken Comments Blood Pressure 135/83 11/16/2023 8:29 AM CDT Pulse 85 11/16/2023 8:29 AM CDT Temperature - - Respiratory Rate - - Oxygen Saturation 93% 11/16/2023 8:29 AM CDT Inhaled Oxygen Concentration - - Weight 95.3 kg (210 lb) 08/08/2023 2:10 PM FARMWORKER Height 167.6 cm (5' 6) 08/08/2023 2:10 PM FARMWORKER Body Mass Index 33.89 08/08/2023 2:10 PM FARMWORKER Plan of Treatment Not on file Insurance [facility]/PPO Address: [address] [address] Care Teams Cryptoanalysis Teacher Relationship Specialty Start Date End Date Abdifatah Miguel MD [address] [address] PCP - General Obstetrics and Gynecology 07/11/23
== END 2025-01-16 08:18 | disposition home or self-care (01) ==
PROVIDERS: PCP Registered Nurse; Visit Provider Registered Nurse
DX: G89.29 Other chronic pain (principal); M25.511 Pain in right shoulder; M25.551 Pain in right hip; M25.552 Pain in left hip; M19.012 Primary osteoarthritis, left shoulder
CPT/HCPCS: 73030; 73502

== ENCOUNTER 2025-03-04 11:49 | Outpatient (CLI) | payer OTHER, SELFPAY ==
--- NOTE | ~2025-03-04 | XR_ITS ---
Cervical Spine: AP, lateral, open-mouth views Clinical History: Bilateral hand numbness Findings: There is reversal normal cervical lordosis. There is grade 1 retrolisthesis of C5 over C6. No fracture seen. There is moderate degenerative disc narrowing throughout the upper cervical spine. There is advanced degenerative disc narrowing at C5-C6 and C6-C7. Mild facet joint degenerative bruce es are present. Pre-vertebral soft tissues are unremarkable. Impression: Moderate to advanced degenerative spondylosis, as above. Grade 1 retrolisthesis of C5 over C6. Reversal of the normal cervical lordosis. Reviewed, dictated and finalized at location . Impression: Moderate to advanced degenerative spondylosis, as above. Grade 1 retrolisthesis of C5 over C6. Reversal of the normal cervical lordosis.
--- OUTSIDE RECORDS SUMMARY | 2025-03-04 11:58 | XMS_ITS | Clinical Summary ---
Author Organization [facility] Address [address] [place] [address] Care Team Providers Care Senior Project Coordinator Name Role Phone Katie Arriaza Primary Care Provider Allergies No known active allergies Medications MARIJUANA TINCTURE Take 2-25 mg by mouth. Active fish oil (OMEGA-3 FATTY ACID) 1000 MG Cap capsule Take by mouth 2 (two) times daily. Active Boswellia-Glucosami ne-Vit D (OSTEO BI-FLEX ONE PER DAY OR) Active Cyanocobalamin (VITAMIN B 12) 250 MCG Lozenge Active Vitamin D3, cholecalciferol, 2000 UNIT Tab tablet Take 1 tablet (2,000 Units total) by mouth daily. Active famotidine (PEPCID) 20 MG tabletIndications:P haryngeal dysphagia TAKE 1 TABLET(20 MG) BY MOUTH TWICE DAILY 60 tablet 3 Active Testosterone Micronized Powder 4 Active Menaquinone-7 (K2 OR) Active Zinc-Magnesium Aspart-Vit B6 (ZINC MAGNESIUM ASPARTATE OR) Active meloxicam (MOBIC) 15 MG tabletIndications:P rimary osteoarthritis of both knees Take 1 tablet (15 mg total) by mouth daily. 90 tablet 3 5 Active omeprazole (PRILOSEC) 20 MG capsule Take 1 capsule (20 mg total) by mouth daily. Active phentermine (ADIPEX-P) 37.5 MG tablet Take 1 tablet (37.5 mg total) by mouth daily. 5 Active Active Problems Problem Noted Date Diagnosed Date Internal hemorrhoids 06/19/2019 Chronic daily headache 06/19/2019 BMI 32.0-32.9,adult 06/19/2019 Current moderate episode of major depressive disorder without prior episode 06/19/2019 Polyarthralgia 06/19/2019 Neck pain 06/19/2019 Primary osteoarthritis of both knees 06/19/2019 Bilateral carpal tunnel syndrome 06/19/2019 Paresthesias 06/19/2019 Encounters Date Type Department Care Team Description 01/30/2025 9:00 AM CDT Office Visit [facility] Medicine [facility] [address] [place] [address] Tavo Srinivasan, BINA New Patient (Bilateral hand pain) 01/30/2025 Scan [facility] Scanned, [facility] 01/30/2025 Travel 01/25/2025 Telephone [facility] [address] [phone] Katie Arriaza APNP Radiology Results 01/11/2025 Results Follow-Up [facility] [address] [phone] Katie Arriaza APNP CAROLYN IFA SCREEN WI RFX TO TITER/CASCADE ([facility] ONLY), RHEUMATOID FACTOR, QUANT, C-REACTIVE PROTEIN, CYCLIC CITRULLINATED PEPTIDE (CCP)ANTIBODY(IGG) 01/03/2025 8:00 AM CDT Telemedicine [address] [phone] Katie Arriaza APNP Joint Pain (Shoulder pain-Left began 1 yr ago, Right began in July after a fall off her camper steps. She landed on the ground on her bottom to her elbows and her head snapped back hard. /Pt describes pain as a sharp poker stabbing inside shoulder joint. Pt also has pain in both hands, knees. Pain is worse at night and is keeping her from sleeping.); GERD (Pt is taking OTC omeprazole 20 mg every morning, but is still having reflux issues.) 01/03/2025 Travel from Last 3 Months Family History Medical History Relation Comments Cancer Maternal Grandmother breast Aneurysm Mother cerebral Dementia Paternal Grandmother Relation Status Comments Maternal Grandmother Mother Paternal Grandmother Social History Tobacco Use Types Packs/Day Years Used Date Smoking Tobacco: Former Cigarettes Q uit: 2000 Smokeless Tobacco: Never Tobacco Cessation:Counseling Given: No Alcohol Use Standard Drinks/Week Comments Not Currently 0 (1 standard drink = 0.6 oz pur e alcohol) occasionally--social AUDIT-C Answer Date Recorded Frequency of Alcohol Consumption Monthly or less 06/19/2019 Average Number of Drinks Not on file 019 Frequency of Binge Drinking Not on file 05/23 PHQ-2 Answer Date Recorded Patient Health Questionnaire-2 Score 0 09/13/2024 Comments No Sex and Gender Information Value Date Recorded Sex Assigned at Female 09/13/2024 2:29 PM SENIOR CONSTRUCTION MANAGER Legal Sex Female 8:49 AM CDT Gender Identity Not on file Sexual Orientation Not on file Last Filed Vital Signs Vital Sign Reading Time Taken Comments Blood Pressure 122/84 01/30/2025 8:54 AM CDT Pulse 80 01/30/2025 8:54 AM CDT Temperature 37.1 C (98.8 F) 01/30/2025 8:54 AM CDT Respiratory Rate 16 09/13/2024 2:29 PM SENIOR CONSTRUCTION MANAGER Oxygen Saturation 96% 09/13/2024 2:29 PM SENIOR CONSTRUCTION MANAGER Inhaled Oxygen Concentration - - Weight 97.4 kg (214 lb 12.8 oz) 01/30/2025 8:54 AM CDT Height 166.4 cm (5' 5.5) 01/30/2025 8:54 AM CDT Body Mass Index 35.2 01/30/2025 8:54 AM CDT Plan of Treatment Health Maintenance Due Date Last Done Comments Mammogram Screening 11/25/2024 11/25/2022 Annual Physical 09/13/2025 09/13/2024 COVID-19 Vaccine (3 - 2023-2 5 season) 2025 04/16/2021, 03/19/2021 Postponed from 04/22/2024 (Patient Refused) DTaP, Tdap and Td Vaccines ( 1 - Tdap) 09/13/2025 Postponed from 04/28 (Awaiting Documentation) Hepatitis B Vaccines (1 of 3 - 19+ 3-dose series) 09/13/2025 Postponed from 02/1995 (Patient Refused) Colorectal Cancer Screening FIT-DNA (3 Years) 11/19/2025 11/19/2022, 11/19/2022 Hepatitis C Completed 11/17/2022 PHQ-2 (Physician [place]) Completed 09/13/2024 Meningococcal B Vaccine Aged Out No l onger eligible based on patient's age to complete this topic Meningococcal Vaccine Aged Out No saleem chavo eligible based on patient's age to complete this topic Pneumococcal Vaccine: Pediatrics (0 to 5 Years) and At-Risk Patients (6 to 49 Years) Aged Out No longer eligible b ased on patient's age to complete this topic RSV Immunizations Under 20 Months Aged Out No longer eligible b ased on patient's age to complete this topic Procedures Procedure Name Priority Date/Time Associated Diagnosis Comments XR HIP RT 2V Routine 01/16/2025 12:00 AM CDT Bilateral hip pain XR HIP LT 2V Routine 01/16/2025 12:00 AM CDT Bilateral hip pain XR SHOULDER RT 3V Routine 01/16/2025 12: 00 AM CDT Chronic pain of both shoulders XR SHOULDER LT 3V Routine 01/16/2025 12: 00 AM CDT Chronic pain of both shoulders CYCLIC CITRULLINATED PEPTIDE (CCP)ANTIBODY(IGG) Routine 01/09/2025 10:20 AM CDT Chronic pain of both shoulders Bilateral hip pain Arthralgia, unspecified joint C-REACTIVE PROTEIN Routine 01/09/2025 10 :20 AM CDT Chronic pain of both shoulders Bilateral hip pain Arthralgia, unspecified joint RHEUMATOID FACTOR, QUANT Routine 01/09/2025 10:20 AM CDT Chronic pain of both shoulders Bilateral hip pain Arthralgia, unspecified joint CAROLYN IFA SCREEN WI RFX TO TITER/CASCADE Routine 01/09/2025 10:20 AM CDT Chronic pain of both shoulders Bilateral hip pain Arthralgia, unspecified joint MAMMOGRAM GENERIC (SCAN ORDER) 11/25/2022 COLOGUARD (EXACT SCIENCE) Routine 11/19/2022 5:00 AM CDT Colon cancer screening HEPATITIS C ANTIBODY W/RFX TO HCV RNA Routine 11/17/2022 7:27 AM CDT Need for hepatitis C screening test from Last 3 Months or Most Recently Relevant to Health Maintenance Results * XR SHOULDER RT 3V (01/16/2025 12:00 AM CDT) Anatomical Region Laterality Modality Shoulder Radiographic Grisel ging 01/16/2025 [facility]AG[facility] Final Resul t * XR SHOULDER LT 3V (01/16/2025 12:00 AM CDT) Anatomical Region Laterality Modality Shoulder Radiographic Grisel ging 01/16/2025 [facility] IMAG[facility] Final Resul t * XR HIP RT 2V (01/16/2025 12:00 AM CDT) Anatomical Region Laterality Modality Hip Radiographic Grisel ging 01/16/2025 [facility] GENER[facility] IMAG[facility] Final Resul t * XR HIP LT 2V (01/16/2025 12:00 AM CDT) Anatomical Region Laterality Modality Hip Radiographic Grisel ging 01/16/2025 [facility] GENER[facility] IMAGING Final Resul t * CAROLYN IFA SCREEN WI RFX TO TITER/CASCADE ([facility] ONLY) (01/09/2025 10:20 AM CDT) CAROLYN NEGATIVE NEGATIVE [employer] [facility] Comment: CAROLYN IFA is a first line screen for detecting the presence of up to approximately 150 autoantibodies in various autoimmune diseases. A negative CAROLYN IFA result suggests an CAROLYN-associated autoimmune disease is not present at this time, and does not reflex further. If there is high clinical suspicion for Sjogren's syndrome, testing for anti-SS-A/Ro antibody should be considered. Anti-Evelyn-1 antibody should be considered for clinically suspected inflammatory myopathies. AC-0: Negative International Consensus on CAROLYN Patterns (https://doi.org/10.1515/lqth-3693-5227) For additional information, please refer to http://education.Neul/faq/RRI721 (This link is being provided for informational/ educational purposes only.) 01/09/2025 10:2 0 AM CDT 01/09/2025 10:20 AM CDT Narrative Resulting Agency Comment Performing Organization Information: Site ID: [id number] Name: [employer] [facility] Address: [address] [place] [phone] Director: Maddie Brewer MD Katie [facility] Final Resul t Performing Organization Address City/[facility] Co de Phone Number [employer] [facility] [employer] [address] [address], * RHEUMATOID FACTOR, QUANT (01/09/2025 10:20 AM CDT) RHEUMATOID FACTOR <10 <14 IU/mL [facility] [[email or web address]] [employer] 01/09/2025 10:2 0 AM CDT 01/09/2025 10:20 AM CDT Narrative Resulting Agency Comment Performing Organization Information: Site ID: [id number] Name: [employer] [facility] Address: [address] [place] [phone] Director: Maddie Brewer MD Katie [facility] Final Resul t Performing Organization Address City/[facility]/ZIP Co de Phone Number [employer] [facility] [employer] [place] [address], * CYCLIC CITRULLINATED PEPTIDE (CCP)ANTIBODY(IGG) (01/09/2025 10:20 AM CDT) CITRULLINE PEPTIDE ANTIBODY <16 UNITS [employer] [facility] Comment: Reference Range Negative: <20 Weak Positive: 20-39 Moderate Positive: 40-59 Strong Positive: >59 01/09/2025 10:2 0 AM CDT 01/09/2025 10:20 AM CDT Narrative Resulting Agency Comment Performing Organization Information: Site ID: [id number] Name: [employer] Address: [address] [place] [phone] Director: Maddie Brewer MD Katie [facility] Final Resul t Performing Organization Address [facility] de Phone Number [employer] MICHAEL - MARY ORDERS [employer] [address] [address], * C-REACTIVE PROTEIN (01/09/2025 10:20 AM CDT) C-REACTIVE PROTEIN <3.0 <8.0 mg/L [employer] [facility] 01/09/2025 10:2 0 AM CDT 01/09/2025 10:20 AM CDT Narrative Resulting Agency Comment Performing Organization Information: Site ID: [id number] Name: [employer] Address: [address] [place] [phone] Director: Maddie Brewer MD Katie [facility] Final Resul t Performing Organization Address [facility] Number [employer] - MARY PERALTA [employer] [address] [address], * MAMMOGRAM GENERIC (11/25/2022) Anatomical Region Laterality Modality Other 11/25/2022 [facility] Scanned SCANNING Final Resu lt * COLOGUARD (EXACT SCIENCE) (11/19/2022 5:00 AM CDT) COLOGUARD RESULT Negative Negative [employer] (CLIA #:[id number]) Comment: NEGATIVE TEST RESULT. A negative Cologuard result indicates a low likelihood that a colorectal cancer (CRC) or advanced adenoma (adenomatous polyps with more advanced pre-malignant features) is present. The chance that a person with a negative Cologuard test has a colorectal cancer is less than 1 in 1500 (negative predictive value >99.9%) or has an advanced adenoma is less than 5.3% (negative predictive value 94.7%). These data are based on a prospective cross-sectional study of 10,000 individuals at average risk for colorectal cancer who were screened with both Cologuard and colonoscopy. (Maribel Morales al, N Engl J Med 2014;370(14):1756-7797) The normal value (reference range) for this assay is negative. COLOGUARD RE-SCREENING RECOMMENDATION: Periodic colorectal cancer screening is an important part of preventive healthcare for asymptomatic individuals at average risk for colorectal cancer. Following a negative Cologuard result, the [place] Cancer Society and U.S. Multi-Society Task Force screening guidelines recommend a Cologuard re-screening interval of 3 years. References: [place] Cancer Society Guideline for Colorectal Cancer Screening: https://www.cancer.org/cancer/oujua-kiofhm-ymxcso/umyhhpyzf-doidizeer-jbvdvcs/ac s-rec ommendations.html.; Tacos DK, Rod CR, Donta SullivanK, Colorectal Cancer Screening: Recommendations for Physicians and Patients from the U.S. Multi-Society Task Force on Colorectal Cancer Screening , Am J Gastroenterology 2017; 112:0663-6210. TEST DESCRIPTION: Composite algorithmic analysis of stool DNA-biomarkers with hemoglobin immunoassay. Quantitative values of individual biomarkers are not reportable and are not associated with individual biomarker result reference ranges. Cologuard is intended for colorectal cancer screening of adults of either sex, 45 years or older, who are at average-risk for colorectal cancer (CRC). Cologuard has been approved for use by the U.S. FDA. The performance of Cologuard was established in a cross sectional study of average-risk adults aged 50-84. Cologuard performance in patients ages 45 to 49 years was estimated by sub-group analysis of near-age groups. Colonoscopies performed for a positive result may find as the most clinically significant lesion: colorectal cancer [4.0%], advanced adenoma (including sessile serrated polyps greater than or equal to 1cm diameter) [20%] or non- advanced adenoma [31%]; or no colorectal neoplasia [45%]. These estimates are derived from a prospective cross-sectional screening study of 10,000 individuals at average risk for colorectal cancer who were screened with both Cologuard and colonoscopy. (Maribel Morales al, N Engl J Med 2014;370(14):4247-8709.) Cologuard may produce a false negative or false positive result (no colorectal cancer or precancerous polyp present at colonoscopy follow up). A negative Cologuard test result does not guarantee the absence of CRC or advanced adenoma (pre-cancer). The current Cologuard screening interval is every 3 years. ([place]izen [place] Cancer Society and U.S. Multi-Society Task Force). Cologuard performance data in a 10,000 patient pivotal study using colonoscopy as the reference method can be accessed at the following location: www.Revolights.Wish/results. Additional description of the Cologuard test process, warnings and precautions can be found at www.Incipient.Wish. STOOL STOOL SPECIMEN / Unknown 11/19/2022 5:00 AM CDT 11/22/2022 12:41 AM CDT Katie CHADWICK BODY FLUIDS AND STOOLS FARIBA DANGELO Final Result [employer] [address] [place] [id number], [employer] (CLIA #:[id number]) [address] [place] [address] * HEPATITIS C ANTIBODY W/RFX TO HCV RNA ([facility] ONLY) (11/17/2022 7:27 AM CDT) HEPATITIS C AB NON-REACT CHETAN NON-REACT CHETAN [employer] [facility] SIGNAL TO CUTOFF 0.03 <1.00 [employer] [facility] Comment: HCV antibody was non-reactive. There is no laboratory evidence of HCV infection. In most cases, no further action is required. However, if recent HCV exposure is suspected, a test for HCV RNA (test code 09661) is suggested. For additional information please refer to http://education.netFactor/faq/AWH12g6 (This link is being provided for informational/ educational purposes only.) 11/17/2022 7:27 AM CDT 11/18/2022 12:45 AM CDT Narrative Resulting Agency Comment Performing Organization Information: Site ID: [place] Name: Luis Snowden Address: [address] [address] Director: Maddie Brewer MD us Katie [facility] Final Resul t [facility]ODRIG[facility] - MARY PERALTA [employer] [facility] [address] [address] from Last 3 Months or Most Recently Relevant to Health Maintenance Insurance [employer] Care Teams Senior Project Coordinator Relationship Specialty Start Date End Date Katie Arriaza APNP [address] [place] [phone] PCP - General NURSE PRACTITIONER 06/19/19
--- OUTSIDE RECORDS SUMMARY | 2025-03-04 11:58 | XMS_ITS | Clinical Summary ---
Author Organization [facility] Stacy Carey Address [address] [place] [address] Care Team Providers Care Visual Lead Name Role Phone Katie Arriaza NP Primary [...] on file Legal Sex Female 8:24 AM SOLAR SYSTEMS DESIGNER Gender Identity Not on file Sexual Orientation Not on file Last Filed Vital Signs Vital Sign Reading Time Taken Comments Blood Pressure 114/74 10/11/2019 2:35 PM SOLAR SYSTEMS DESIGNER Pulse 89 10/11/2019 2:35 PM SOLAR SYSTEMS DESIGNER Temperature 36.7 C (98 F) 10/11/2019 2:35 PM SOLAR SYSTEMS DESIGNER Respiratory Rate - - Oxygen Saturation 98% 10/11/2019 2:35 PM SOLAR SYSTEMS DESIGNER Inhaled Oxygen Concentration - - Weight 89.9 kg (198 lb 4.8 oz) 10/11/2019 2:35 P M SOLAR SYSTEMS DESIGNER Height 170.2 cm (5' 7) 10/11/2019 2:35 PM SOLAR SYSTEMS DESIGNER Body Mass Index 31.06 10/11/2019 2:35 PM SOLAR SYSTEMS DESIGNER Plan of Treatment Health Maintenance Due Date Last Done Comments Pre-Diabetes and Diabetes Screening 1976 DTAP/TDAP/TD VACCINES (1 - Tdap) 1995 HEPATITIS B VACCINES (1 of 3 - 19+ 3-dose series) 02/1995 BREAST CANCER SCREENING 2016 COLORECTAL SCREENING 2021 Colorectal Cancer Screening 2021 FIT-DNA Q 3 years 2021 FIT/FOBT Q 1 year 2021 Flex Sig/CT Colonography Q 5 years 2021 INFLUENZA VACCINE (#1) 2025 Care Teams Visual Lead Relationship Specialty Start Date End Date Katie Arriaza NP [address] [place] [phone] PCP - General NURSE PRACTITIONER 09/20/19
--- OUTSIDE RECORDS SUMMARY | 2025-03-04 11:58 | XMS_ITS | Clinical Summary ---
Author Organization [facility] Address [address] [facility] [place] [address] Care Team Providers Care Certified Art Therapist Name Role Phone Sabas Acosta MD Primary Care Provider [phone] Source Comments [facility],non-owned Affiliates and Associated Physician Practices is amultiple site organization consisting of ambulatory clinics and hospital sitesin [place], [place], [place] and [place]. This disclosure is being madepursuant to the Care Everywhere program and may not contain all information available regarding this patient. Last updated 18.[facility] Allergies No known active allergies Medications * [...] season) 2024 DEPRESSION SCREENING 08/22/2024 INFLUENZA VACCINE (#1) 2025 ZOSTER VACCINE (1 of 2) 2026 [...] complete this topic Insurance [employer] Care Teams Certified Art Therapist Relationship Specialty Start Date End Date Sabas Acosta MD [address] [place] [address] PCP - General 01/03/18
== END 2025-03-04 11:50 | disposition home or self-care (01) ==
PROVIDERS: PCP Registered Nurse; Visit Provider Registered Nurse
DX: M47.812 Spondylosis without myelopathy or radiculopathy, cervical region (principal); M43.12 Spondylolisthesis, cervical region; M40.56 Lordosis, unspecified, lumbar region
CPT/HCPCS: 72040

== ENCOUNTER 2025-03-18 17:00 | Outpatient (RCR) | payer OTHER, SELFPAY ==
--- NOTE | 2025-01-30 15:06 | OPREHPOC ---
Outpatient Therapy Plan of Care This is a Multidisciplinary Plan of Care that may contain components documented by all disciplines (PT, OT, and ST.) PT Problem 1 PT Problem #1 Knowledge Deficit PT Goal 1 Goal / Goal Update Patient to demonstrate independence with HEP for improved self-reliance of symptom management. Target Visit 5 PT Problem 2 PT Problem #2 Pain PT Goal 1 Goal / Goal Update 1. Patient to decrease subjective reports of R shoulder pain to <3/10 with overhead mobility for improved ADL tolerance. 2. Patient to decrease subjective reports of L shoulder pain to <3/10 with overhead mobility for improved ADL tolerance. Target Visit 10 PT Problem 3 PT Problem #3 Impaired Strength PT Goal 1 Goal / Goal Update 1. Patient to demonstrate Bilateral abduction shoulder strength >4=/5 for improved functional stability required for ADLs. 2. Patient to demonstrate Bilateral external and internal rotation shoulder strength >4+=/5 for improved functional stability required for ADLs. Target Visit 10 PT Problem 4 PT Problem #4 Impaired Range of Motion PT Goal 1 Goal / Goal Update 1. Patient to demonstrate resting forward head posture of 15 degrees for normalized cervical posture to decrease the strain of upper quadrant musculature. 2. Pt to demonstrate bilateral shoulder flexion and abduction AROM of 0-150 deg to improve the ability to reach overhead. Target Visit 10
--- NOTE | 2025-01-30 15:06 | PTOPEVAL1 ---
Assessment and note entered by Jazmin Gutiérrez, PT Evaluation Information Assessment Status Evaluation Diagnosis chronic bilateral shoulder pain ICD-10 Condition Codes (PT) Pain in right shoulder M25.511,Pain in left shoulder M25.512 Onset July 2024 Subjective Information Pt. reports falling out of her camper last July. Noted her R shoulder was worse at first but now her L is starting to get worse. She is R handed. 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 She reports all of her proximal joints hurt as well as her knees and hands. She thinks her shoulder pain might be getting better with increased hormone replacement therapy. She reports greatest difficulty with sleeping, reaching overhead and into her backseat, and weakness with lifting/carrying activities. She was getting slight relief in her neck tightness with chiro care. She has been trying to use a massage gun on the back of her shoulders with minimal relief. Reported Pain Level Pain Score 4: Self Report Assessment PT Clinical Summary Pt is a 49 year old female who presents to physical therapy with a primary complaint of bilateral shoulder pain since July 2024. Pt demonstrates bilateral shoulder weakness greatest into external rotation and abduction, pain provocation with overhead mobility, and abnormal posture that limit their ability to perform ADLs. Pt will benefit from skilled physical therapy to address the above listed deficits and return to PLOF. HEP instructed and written handout provided, EX tolerated well with no adverse effects to note post-session. Pt was educated on importance of adherence to HEP. Pt was also educated on anatomy, prognosis, home modalities, and PT POC. Plan of Care Interventions Electrical Stimulation,Hot Pack/Cold Pack,Manual Therapy,Neuro Re-education,Therapeutic Activities, Therapeutic Exercise PT Services Indicated Yes Treatment Frequency and 2x/wk for 10 sessions Duration These treatments will address the objective and functional deficits as defined above. The patient will be advanced safely and appropriately in order for the patient to progress towards his/her prior level of function. Additional exercises will be introduced and as well as a comprehensive home exercise program upon discharge, if needed, ?to ensure carryover of functional gains achieved in the clinic. This treatment plan has been reviewed and agreement upon by the patient.
--- NOTE | 2025-03-18 17:47 | PTOPDC ---
Assessment and note entered by Jazmin Gutiérrez, PT Evaluation Information Assessment Status Discharge Diagnosis chronic bilateral shoulder pain ICD-10 Condition Codes (PT) Pain in right shoulder M25.511,Pain in left shoulder M25.512 Onset July 2024 Subjective Information Pt reports feeling 70% better since starting therapy. She will have some achiness in the shoulders if she sleeps on them for too long. She denies pain in the last week. She has however been on a steroid for her knee this past week though. She is able to hold her grandchildren, wash the clemons, and reach behind to perform personal hygiene tasks without pain. She has an order for her neck but has no issues with it since starting therapy for her shoulders. Her primary concern is her knee, has an MD appt next . Reported Pain Level Pain Score 0: Self Report Assessment PT Clinical Summary Patient's condition has improved overall as evidenced by advancements in symptoms, mobility, strength, and overall functional use of the UEs. Pt has met 6/7 therapy goals and is pleased with progress made towards the remaining goal. Pt was provided an updated HEP to continue progressing toward bilateral shoulder abduction strength. Patient to DC from PT this date and continue with updated HEP as instructed. Pt to contact PT or PCP if questions or concerns arise. Pt received an order to address her neck but at this time does not feel she has any limitations which is evidenced by an NDI score of 2%. Pt declined further evaluation this date. Her primary concern is her L knee, she has an MD with an orthopedic on 03/26 with anticipation to return to PT with new script regrading this joint. Plan of Care PT Services Indicated Yes
== END 2025-03-19 10:03 | disposition home or self-care (01) ==
LOC: ANHPT 17:00
PROVIDERS: PCP Registered Nurse; Visit Provider Registered Nurse
DX: M25.511 Pain in right shoulder (principal); G89.29 Other chronic pain; M25.512 Pain in left shoulder
CPT/HCPCS: 97110; 97112; 97140; 97162

== ENCOUNTER 2025-03-26 07:53 | Outpatient (CLI) | payer OTHER, SELFPAY ==
--- NOTE | ~2025-03-26 | MM_ITS ---
EXAMINATION: MM screening ilana BI w marichuy HISTORY: Screening TECHNIQUE: Craniocaudal and mediolateral oblique 3-D tomosynthesis images were obtained and synthetic 2-D images were generated. CAD analysis was submitted and interpreted. COMPARISON: Comparison to multiple prior studies sequentially, with oldest reviewed study dated 04/05. BREAST PARENCHYMAL COMPOSITION: There are scattered areas of fibroglandular density. FINDINGS: There is no evidence of suspicious mass, calcification, or architectural distortion to sug gest malignancy in either breast. IMPRESSION: 1. No mammographic evidence of malignancy. 2. Recommend routine screening mammography in one year. BI-RADS Category 1: Negative Reviewed, dictated and finalized at location B.
--- OUTSIDE RECORDS SUMMARY | 2025-03-26 08:02 | XMS_ITS | Clinical Summary ---
Author Organization [facility] Address [address] [place] [address] Care Team Providers Care Director Of Flight Operations Name Role Phone Abdifatah Miguel MD Primary Care Provider [phone] Allergies No known active allergies Medications estradioL [...] phlebectomies. Assessment & Plan (08/09/2023 11:51 AM WAITER/WAITRESS BAR): Impression: Patient complains of heaviness and discomfort [...] Tobacco: Never Tobacco Cessation:Counseling Given: Not Answered Comments Unknown Sex and Gender Information Value Date Recorded Sex Assigned at Not on file Legal Sex Female 12:17 PM WAITER/WAITRESS BAR Gender Identity Not on file Sexual Orientation Not on file Obstetrics History Last Filed Vital Signs Vital Sign Reading Time Taken Comments Blood Pressure 135/83 11/16/2023 8:29 AM CDT Pulse 85 11/16/2023 8:29 AM CDT Temperature - - Respiratory Rate - - Oxygen Saturation 93% 11/16/2023 8:29 AM CDT Inhaled Oxygen Concentration - - Weight 95.3 kg (210 lb) 08/08/2023 2:10 PM WAITER/WAITRESS BAR Height 167.6 cm (5' 6) 08/08/2023 2:10 PM WAITER/WAITRESS BAR Body Mass Index 33.89 08/08/2023 2:10 PM WAITER/WAITRESS BAR Plan of Treatment Health Maintenance Due Date Last Done Comments Breast Cancer Screening-Mammogram 1976 Cervical Cancer Screening 1976 Colon Cancer Screening-Colonoscopy 1976 Depression Screening 1976 Hepatitis C Screening 1976 DTaP/Tdap/Td Vaccine (1 - Tdap) 1987 Hepatitis B Screening 1994 Regular Well Visit/Exam 18-64 1994 Covid-19 Vaccine (3 - 2023-2 5 season) 2024 04/16/2021, 03/19/2021 Influenza Vaccine (#1) 2025 Pneumococcal vaccine <65 Aged Out No longer eligible based on patient's age to complete this topic Insurance [facility] HMO/PPO Address: [facility] [address] [place] [address] Care Teams Director Of Flight Operations Relationship Specialty Start Date End Date Abdifatah Miguel MD [address] [facility] [address] [place] [address] PCP - General Obstetrics and Gynecology 07/11/23
--- OUTSIDE RECORDS SUMMARY | 2025-03-26 08:02 | XMS_ITS | Clinical Summary ---
Author Organization [facility] Address [address] [place] [address] Care Team Providers Care Client Services Analyst Name Role Phone Katie Arriaza Primary Care Provider [phone] Allergies No known active allergies Medications MARIJUANA [...] mg total) by mouth daily. 5 Active predniSONE (DELTASONE) 20 MG tabletIndications:K nee pain Take 1 tablet (20 mg total) by mouth daily for 5 days. 5 tablet 5 03/18/20 25 Active Problems Problem Noted Date Diagnosed Date Internal hemorrhoids 06/19/2019 Chronic daily headache 06/19/2019 BMI 32.0-32.9,adult 06/19/2019 Current moderate episode of major depressive disorder without prior episode 06/19/2019 Polyarthralgia 06/19/2019 Neck pain 06/19/2019 Primary osteoarthritis of both knees 06/19/2019 Bilateral carpal tunnel syndrome 06/19/2019 Paresthesias 06/19/2019 Encounters Date Type Department Care Team Description 03/18/2025 Scan [facility] HE[facility] INFO SRVCS Scanned, Doc [facility] 03/07/2025 Telephone [facility] Internal [address] [phone] Katie Arriaza APNP Radiology Results (C-spine xray 03/04/25 VICTOR MANUEL) 03/04/2025 Scan HEALTH INFO SRVCS Scanned, Doc Med Group Image (SCAN) 01/30/2025 9:00 AM CDT Office Visit [facility] [address] [address] Tavo Srinivasan, FINANCIAL INVESTIGATOR New Patient (Bilateral hand pain) 01/30/2025 Scan MG HEALTH INFO SRVCS Scanned, Doc Med Group 01/30/2025 Travel 01/25/[address] [phone] Katie Arriaza APNP Radiology Results 01/11/2025 Results Follow-Up [facility] Internal [address] [phone] Katie Arriaza APNP CAROLYN IFA SCREEN [place] RFX TO TITER/CASCADE ([facility] ONLY), RHEUMATOID FACTOR, QUANT, C-REACTIVE PROTEIN, CYCLIC CITRULLINATED PEPTIDE (CCP)ANTIBODY(IGG) 01/03/2025 8:00 AM CDT Telemedicine [facility] Internal [address] [phone] Katie Arriaza H, APNP Joint Pain (Shoulder pain-Left began 1 [...] Date Smoking Tobacco: Former Cigarettes Q uit: 1999 Smokeless Tobacco: Never Tobacco Cessation:Counseling Given: No [...] Sex Assigned at Female 09/13/2024 2:29 PM PIN MAKER Legal Sex Female 8:49 AM CDT Gender Identity Not on file Sexual Orientation Not on file Last Filed Vital Signs Vital Sign Reading Time Taken Comments Blood Pressure 122/84 01/30/2025 8:54 AM CDT Pulse 80 01/30/2025 8:54 AM CDT Temperature 37.1 C (98.8 F) 01/30/2025 8:54 AM CDT Respiratory Rate 16 09/13/2024 2:29 PM PIN MAKER Oxygen Saturation 96% 09/13/2024 2:29 PM PIN MAKER Inhaled Oxygen Concentration - - Weight 97.4 [...] 11/19/2022 Hepatitis C Completed 11/17/2022 PHQ-2 (Physician Falun) Completed 09/13/2024 Meningococcal B Vaccine Aged Out [...] Procedure Name Priority Date/Time Associated Diagnosis Comments IMAGE GENERIC 03/04/2025 XR HIP RT 2V Routine 01/16/2025 12:00 [...] Recently Relevant to Health Maintenance Results * IMAGE GENERIC (03/04/2025) Anatomical Region Laterality Modality Other 03/04/2025 [facility] Group Scanned SCANNING Final Resu lt * XR SHOULDER RT 3V (01/16/2025 12:00 AM CDT) Anatomical Region Laterality Modality Shoulder Radiographic Grisel ging 01/16/2025 Katie [facility] Final Resul t * XR SHOULDER LT 3V (01/16/2025 12:00 AM CDT) Anatomical Region Laterality Modality Shoulder Radiographic Grisel ging 01/16/2025 Katie [facility] Final Resul t * XR HIP RT 2V (01/16/2025 12:00 AM CDT) Anatomical Region Laterality Modality Hip Radiographic Grisel ging 01/16/2025 Katie Wynne Sofiya [facility] Final Resul t * XR HIP LT 2V (01/16/2025 12:00 AM CDT) Anatomical Region Laterality Modality Hip Radiographic Grisel ging 01/16/2025 Katie Wynne Sofiya [facility] Final Resul t * CAROLYN IFA SCREEN [place] RFX TO TITER/CASCADE ([facility] ONLY) (01/09/2025 10:20 AM CDT) CAROLYN NEGATIVE NEGATIVE [facility] Comment: CAROLYN IFA is a [...] AC-0: Negative International Consensus on CAROLYN Patterns (https://doi.org/10.1515/blvd-9444-8092) For additional information, please refer to http://education.ConnectToHome/faq/PUG013 (This link is being provided for informational/ educational purposes only.) 01/09/2025 10:2 0 AM CDT 01/09/2025 10:20 AM CDT Narrative Resulting Agency Comment Performing Organization Information: Site ID: [place] Name: [facility] Address: [address] [address] Director: Maddie Brewer MD Katie Sherrell Sofiya [facility] Final Resul t [facility] [address] [address], [place] * RHEUMATOID FACTOR, QUANT (01/09/2025 10:20 AM CDT) RHEUMATOID FACTOR <10 <14 IU/mL [facility] 01/09/2025 10:2 0 AM CDT 01/09/2025 10:20 AM CDT Narrative Resulting Agency Comment Performing Organization Information: Site ID: [place] Name: [facility] Address: [address] [place] [phone] Director: Maddie Brewer MD Katie [facility] Final Resul t Performing Organization Address [facility] Co de Phone Number [facility] [phone] [place] [address] * CYCLIC CITRULLINATED PEPTIDE (CCP)ANTIBODY(IGG) (01/09/2025 10:20 AM CDT) CITRULLINE PEPTIDE ANTIBODY <16 UNITS [facility] Comment: Reference Range Negative: <20 Weak Positive: 20-39 Moderate Positive: 40-59 Strong Positive: >59 01/09/2025 10:2 0 AM CDT 01/09/2025 10:20 AM CDT Narrative Resulting Agency Comment Performing Organization Information: Site ID: [place] Name: [facility] Address: [address] [place] [phone] Director: Maddie Brweer MD Katie [facility] Final Resul t Performing Organization Address [facility] Co de Phone Number [facility] [address] [address], * C-REACTIVE PROTEIN (01/09/2025 10:20 AM CDT) C-REACTIVE PROTEIN <3.0 <8.0 mg/L [facility] 01/09/2025 10:2 0 AM CDT 01/09/2025 10:20 AM CDT Narrative Resulting Agency Comment Performing Organization Information: Site ID: [place] Name: [facility] Address: [address] [place] [phone] Director: Maddie Brewer MD Katie [facility] Final Resul t [facility] [address] [address] [address], [place] * MAMMOGRAM GENERIC (11/25/2022) Anatomical Region Laterality Modality Other 11/25/2022 us Doc Med Group Scanned SCANNING Final Resu lt * COLOGUARD (EXACT SCIENCE) (11/19/2022 5:00 AM CDT) COLOGUARD RESULT Negative Negative [facility] (CLIA #:[id number]) Comment: NEGATIVE TEST RESULT. A negative Cologuard [...] screened with both Cologuard and colonoscopy. (Maribel Herron et al, N Engl J Med 2014;370(14):3447-5318) The normal value (reference range) for this assay is negative. COLOGUARD RE-SCREENING RECOMMENDATION: Periodic colorectal cancer screening is an important part of preventive healthcare for asymptomatic individuals at average risk for colorectal cancer. Following a negative Cologuard result, the [place] Cancer Society and U.S. Multi-Society Task Force screening guidelines recommend a Cologuard re-screening interval of 3 years. References: [place] Cancer Society Guideline for Colorectal Cancer Screening: https://www.cancer.org/cancer/ceqbz-uyilxr-ugdble/xbgjzpjwe-uqaqmhsww-huznggu/ac s-rec ommendations.html.; Tacos URENA, Rod SALDAÑA, Donta RENDON, Colorectal Cancer Screening: Recommendations for Physicians and Patients from the U.S. Multi-Society Task Force on Colorectal Cancer Screening , Am J Gastroenterology 2017; 112:1432-8177. TEST DESCRIPTION: Composite algorithmic analysis of stool [...] screened with both Cologuard and colonoscopy. (Maribel Garcia. et al, N Engl J Med 2014;370(14):9300-5387.) Cologuard may produce a false negative or false positive result (no colorectal cancer or precancerous polyp present at colonoscopy follow up). A negative Cologuard test result does not guarantee the absence of CRC or advanced adenoma (pre-cancer). The current Cologuard screening interval is every 3 years. ([place] Cancer Society and U.S. Multi-Society Task Force). Cologuard performance data in a 10,000 patient pivotal study using colonoscopy as the reference method can be accessed at the following location: www.[employer]/results. Additional description of the Cologuard test process, warnings and precautions can be found at www.Access PharmaceuticalsogClarimedixrd.com. STOOL STOOL SPECIMEN / Unknown 11/19/2022 5:00 AM CDT 11/22/2022 12:41 AM CDT Katie [facility] FLUIDS AND STOOLS FARIBA DANGELO Final Result Performing Organization Address City/[facility]/ZIP Co de Phone Number [employer] [address] [place] [address], [place] [phone] [employer] (CLIA #:[id number]) [address] [place] [address] * HEPATITIS C ANTIBODY W/RFX TO HCV RNA ([facility] ONLY) (11/17/2022 7:27 AM CDT) HEPATITIS C AB NON-REACT CHETAN NON-REACT CHETAN [facility] SIGNAL TO CUTOFF 0.03 <1.00 [facility] Comment: HCV antibody was non-reactive. There is no laboratory evidence of HCV infection. In most cases, no further action is required. However, if recent HCV exposure is suspected, a test for HCV RNA (test code 53019) is suggested. For additional information please refer to http://education.ClaytonSt[employer].com/faq/TDV44c5 (This link is being provided for informational/ educational purposes only.) 11/17/2022 7:27 AM CDT 11/18/2022 12:45 AM CDT Narrative Resulting Agency Comment Performing Organization Information: Site ID: [place] Name: [facility] Address: [address] [place] [address] Director: Maddie Brewer MD Katie [facility] Final Resul t Performing Organization Address City/[facility] Co de Phone Number [facility]HAEL PER[facility] [address] [facility] [place], [place] [phone] [place] [address] from Last 3 Months or Most Recently Relevant to Health Maintenance Insurance [facility] Care Teams Client Services Analyst Relationship Specialty Start Date End Date Katie Arriaza APNP [facility] [place] [address] PCP - General NURSE PRACTITIONER 06/19/19
--- OUTSIDE RECORDS SUMMARY | 2025-03-26 08:02 | XMS_ITS | Clinical Summary ---
Author Organization [email or web address] Address [address] [facility] [place] [address] Care Team Providers Care Slip Seat Coverer Name Role Phone Sabas Acosta MD Primary Care Provider [phone] Source Comments [facility] [email or web address],non-owned Affiliates and Associated Physician Practices is amultiple site organization consisting of ambulatory clinics and hospital sitesin [place], [place], [place] and [place]. This disclosure is being madepursuant to the Care Everywhere program and may not contain all information available regarding this patient. Last updated 18.[email or web address] Allergies No known active allergies Medications * [...] complete this topic Insurance [employer] Care Teams Slip Seat Coverer Relationship Specialty Start Date End Date Sabas Acosta MD [address] [place] [address] PCP - General 01/03/18
--- OUTSIDE RECORDS SUMMARY | 2025-03-26 08:02 | XMS_ITS | Clinical Summary ---
Author Organization [facility] St[facility] Address [address] [place] [address] Care Team Providers Care Tree Marker Name Role Phone Katie Arriaza NP Primary [...] on file Legal Sex Female 8:24 AM STONE CLEANER Gender Identity Not on file Sexual Orientation Not on file Last Filed Vital Signs Vital Sign Reading Time Taken Comments Blood Pressure 114/74 10/11/2019 2:35 PM STONE CLEANER Pulse 89 10/11/2019 2:35 PM STONE CLEANER Temperature 36.7 C (98 F) 10/11/2019 2:35 PM STONE CLEANER Respiratory Rate - - Oxygen Saturation 98% 10/11/2019 2:35 PM STONE CLEANER Inhaled Oxygen Concentration - - Weight 89.9 kg (198 lb 4.8 oz) 10/11/2019 2:35 P M STONE CLEANER Height 170.2 cm (5' 7) 10/11/2019 2:35 PM STONE CLEANER Body Mass Index 31.06 10/11/2019 2:35 PM STONE CLEANER Plan of Treatment Health Maintenance Due Date [...] 2021 INFLUENZA VACCINE (#1) 2025 Care Teams Tree Marker Relationship Specialty Start Date End Date Katie Arriaza NP [address] [place] [phone] PCP - General NURSE PRACTITIONER 09/20/19
--- OUTSIDE RECORDS SUMMARY | 2025-03-26 08:02 | XMS_ITS | Encounter Summary ---
Author Organization [facility] Address [address] [place] [address] Care Team Providers Care Maintenance Repairman Name Role Phone Katie Arriaza Primary Care Provider [phone] Encounter Details Date Type Department Care Team (Latest Contact Info) Description 03/18/2025 Scan MG HEALTH INFO SRVCS Scanned, Doc Med Group Social History Tobacco Use Types Packs/Day Years Used Date Smoking Tobacco: Former Cigarettes Q uit: 1999 Smokeless Tobacco: Never Alcohol Use Standard Drinks/Week Comments Not Currently [...] Sex Assigned at Female 09/13/2024 2:29 PM FUR COAT SEWER Legal Sex Female 8:49 AM CDT Gender Identity Not on file Sexual Orientation Not on file documented as of this encounter Plan of Treatment Not on file documented as of this encounter Visit Diagnoses Not on filedocumented in this encounter Additional Health Concerns Assessment Noted Time PHQ-9 Depression Total Score: 5 11/04/19 23 11:09 AM CDT documented as of this encounter Care Teams Maintenance Repairman Relationship Specialty Start Date End Date Katie Arriaza APNP [address] [place] [address] PCP - General NURSE PRACTITIONER 06/19/19 documented as of this encounter
--- OUTSIDE RECORDS SUMMARY | 2025-03-26 08:02 | XMS_ITS | Referral Summary ---
Author Organization [facility] Address [address] [place] [address] Care Team Providers Care Set Up Mechanic Coil Winding Machines Name Role Phone Abdifatah Miguel MD Primary Care Provider [phone] Allergies No known active allergies Medications estradioL [...] phlebectomies. Assessment & Plan (08/09/2023 11:51 AM HAND RIVETER): Impression: Patient complains of heaviness and discomfort [...] on file Legal Sex Female 12:17 PM HAND RIVETER Gender Identity Not on file Sexual Orientation Not on file Last Filed Vital Signs Vital Sign Reading Time Taken Comments Blood Pressure 135/83 11/16/2023 8:29 AM CDT Pulse 85 11/16/2023 8:29 AM CDT Temperature - - Respiratory Rate - - Oxygen Saturation 93% 11/16/2023 8:29 AM CDT Inhaled Oxygen Concentration - - Weight 95.3 kg (210 lb) 08/08/2023 2:10 PM HAND RIVETER Height 167.6 cm (5' 6) 08/08/2023 2:10 PM HAND RIVETER Body Mass Index 33.89 08/08/2023 2:10 PM HAND RIVETER Plan of Treatment Not on file Insurance Care Teams Set Up Mechanic Coil Winding Machines Relationship Specialty Start Date End Date Abdifatah Miguel MD [address] [address] PCP - General Obstetrics and Gynecology 07/11/23
== END 2025-03-26 07:54 | disposition home or self-care (01) ==
LOC: ANHIMG 07:56
PROVIDERS: PCP Registered Nurse; Visit Provider Obstetrics & Gynecology
DX: Z12.31 Encounter for screening mammogram for malignant neoplasm of breast (principal)
CPT/HCPCS: 77063; 77067

== ENCOUNTER 2025-04-15 00:09 | Day surgery (SDC) | payer OTHER, SELFPAY ==
[2025-03-29 14:01] VITALS: BMI 34.7
--- OUTSIDE RECORDS SUMMARY | 2025-04-15 00:11 | XMS_ITS | Clinical Summary ---
Author Organization [facility] [employer] Address [address] [facility] [place] [address] Care Team Providers Care Field Laborer Name Role Phone Sabas Acosta MD Primary Care Provider [phone] Source Comments [facility] [employer],non-owned Affiliates and Associated Physician Practices is amultiple site organization consisting of ambulatory clinics and hospital sitesin [place], [place], [place] and [place]. This disclosure is being madepursuant to the Care Everywhere program and may not contain all information available regarding this patient. Last updated 18.[facility] [employer] Allergies No known active allergies Medications * [...] complete this topic Insurance [employer] Care Teams Field Laborer Relationship Specialty Start Date End Date Sabas Acosta MD [address] [place] [address] PCP - General 01/03/18
--- OUTSIDE RECORDS SUMMARY | 2025-04-15 00:11 | XMS_ITS | Clinical Summary ---
Author Organization [facility] Address [address] [place] [address] Care Team Providers Care Pulp And Paper Tester Name Role Phone Katie Arriaza Primary Care Provider [phone] Allergies No known active allergies Medications MARIJUANA [...] Encounters Date Type Department Care Team Description 03/26/2025 Scan [facility] Scanned, [facility] Mammogram (SCAN) 03/18/2025 Scan [facility] Scanned, Doc [facility] 03/07/2025 Telephone [facility] Family & Internal Medicine [address] [address] Katie Arriaza, APNP Radiology Results (C-spine xray 03/04/25 VICTOR MANUEL) 03/04/2025 Scan [facility] Scanned, Doc [facility] Image (SCAN) 01/30/2025 9:00 AM CDT Office Visit [facility] Orthopedic & Sports Medicine [address] [address] Tavo Srinivasan, FOREST SCIENTIST New Patient (Bilateral hand pain) 01/30/2025 Scan [facility] Scanned, Doc [facility] 01/30/2025 Travel 01/25/[address] [facility] Internal [address] [address] Katie Arriaza, APNP Radiology Results from Last 3 Months Family History Medical [...] Sex Assigned at Female 09/13/2024 2:29 PM PRODUCTION SUPERVISOR Legal Sex Female 8:49 AM CDT Gender Identity Not on file Sexual Orientation Not on file Last Filed Vital Signs Vital Sign Reading Time Taken Comments Blood Pressure 122/84 01/30/2025 8:54 AM CDT Pulse 80 01/30/2025 8:54 AM CDT Temperature 37.1 C (98.8 F) 01/30/2025 8:54 AM CDT Respiratory Rate 16 09/13/2024 2:29 PM PRODUCTION SUPERVISOR Oxygen Saturation 96% 09/13/2024 2:29 PM PRODUCTION SUPERVISOR Inhaled Oxygen Concentration - - Weight 97.4 kg (214 lb 12.8 oz) 01/30/2025 8:54 AM CDT Height 166.4 cm (5' 5.5) 01/30/2025 8:54 AM CDT Body Mass Index 35.2 01/30/2025 8:54 AM CDT Plan of Treatment Health Maintenance Due Date Last Done Comments Annual Physical 09/13/2025 09/13/2024 COVID-19 Vaccine (2023-2 5 season) 2025 04/16/2021, 03/19/2021 Postponed from 04/22/2024 (Patient Refused) DTaP, Tdap and Td Vaccines ( 1 - Tdap) 09/13/2025 Postponed from 04/28 (Awaiting Documentation) Hepatitis B Vaccines (1 of 3 - 19+ 3-dose series) 09/13/2025 Postponed from 02/1995 (Patient Refused) Colorectal Cancer Screening FIT-DNA (3 Years) 11/19/2025 11/19/2022, 11/19/2022 Mammogram Screening 03/26/2027 03/26/2025, 11/25/2022 Hepatitis C Completed 11/17/2022 PHQ-2 (Physician [place]) Completed 09/13/2024 Meningococcal B Vaccine Aged Out [...] Procedure Name Priority Date/Time Associated Diagnosis Comments MAMMOGRAM GENERIC (SCAN ORDER) 03/26/2025 IMAGE GENERIC 03/04/2025 XR HIP RT 2V Routine 01/16/2025 12:00 AM CDT Bilateral hip pain XR HIP LT 2V Routine 01/16/2025 12:00 AM CDT Bilateral hip pain XR SHOULDER RT 3V Routine 01/16/2025 12: 00 AM CDT Chronic pain of both shoulders XR SHOULDER LT 3V Routine 01/16/2025 12: 00 AM CDT Chronic pain of both shoulders COLOGUARD (EXACT SCIENCE) Routine 11/19/2022 5:00 AM CDT Colon cancer screening HEPATITIS C ANTIBODY W/RFX TO HCV RNA Routine 11/17/2022 7:27 AM CDT Need for hepatitis C screening test from Last 3 Months or Most Recently Relevant to Health Maintenance Results * MAMMOGRAM GENERIC (SCAN ORDER) (03/26/2025) Anatomical Region Laterality Modality Other 03/26/2025 [facility] Scanned SCANNING Final Resu lt * IMAGE GENERIC (03/04/2025) Anatomical Region Laterality Modality Other 03/04/2025 [facility] Scanned SCANNING Final Resu lt * XR SHOULDER RT 3V (01/16/2025 12:00 AM CDT) Anatomical Region Laterality Modality Shoulder Radiographic Grisel ging 01/16/2025 Katie [facility] Final Resul t * XR SHOULDER LT 3V (01/16/2025 12:00 AM CDT) Anatomical Region Laterality Modality Shoulder Radiographic Grisel ging 01/16/2025 us Katie [facility] Final Resul t * XR HIP RT 2V (01/16/2025 12:00 AM CDT) Anatomical Region Laterality Modality Hip Radiographic Grisel ging 01/16/2025 us Katie [facility] Final Resul t * XR HIP LT 2V (01/16/2025 12:00 AM CDT) Anatomical Region Laterality Modality Hip Radiographic Grisel ging 01/16/2025 us Katie [facility] Final Resul t * COLOGUARD (Your Truman Show SCIENCE) (11/19/2022 5:00 AM CDT) COLOGUARD RESULT Negative Negative [employer] (CLIA #:[id number]) Comment: NEGATIVE TEST RESULT. A negative Cologuard [...] (Maribel Morales al, N Engl J Med 2014;370(14):7392-4315) The normal value (reference range) for this assay is negative. COLOGUARD RE-SCREENING RECOMMENDATION: Periodic colorectal cancer screening is an important part of preventive healthcare for asymptomatic individuals at average risk for colorectal cancer. Following a negative Cologuard result, the [place] Cancer Society and U.S. Multi-Society Task Force screening guidelines recommend a Cologuard re-screening interval of 3 years. References: [place] [employer] Guideline for Colorectal Cancer Screening: https://www.cancer.org/cancer/jvwil-figjml-vzixgm/farhkicih-oernenyrx-cjihbsy/ac s-rec ommendations.html.; Tacos DK, Rod CR, Donta SullivanK, Colorectal Cancer Screening: Recommendations for Physicians and Patients from the U.S. Multi-Society Task Force on Colorectal Cancer Screening , Am J Gastroenterology 2017; 112:2918-6696. TEST DESCRIPTION: Composite algorithmic analysis of stool [...] (Maribel Morales al, N Engl J Med 2014;370(14):9510-2165.) Cologuard may produce a false negative or false positive result (no colorectal cancer or precancerous polyp present at colonoscopy follow up). A negative Cologuard test result does not guarantee the absence of CRC or advanced adenoma (pre-cancer). The current Cologuard screening interval is every 3 years. ([place] Cancer Society and U.S. Multi-Society Task Force). Cologuard performance data in a 10,000 patient pivotal study using colonoscopy as the reference method can be accessed at the following location: www.[employer].Taskmit/results. Additional description of the Cologuard test process, warnings and precautions can be found at www.colalife studios incrd.com. STOOL STOOL SPECIMEN / Unknown 11/19/2022 5:00 AM CDT 11/22/2022 12:41 AM CDT Katie [facility] Final Result Performing Organization Address City/[facility]/ZIP Co de Phone Number [facility] [address] [place] [address], [employer] (CLIA #:[id number]) [address] [place] [address] * HEPATITIS C ANTIBODY W/RFX TO HCV RNA ([facility] ONLY) (11/17/2022 7:27 AM CDT) HEPATITIS C AB NON-REACT CHETAN NON-REACT CHETAN [employer] [facility] SIGNAL TO CUTOFF 0.03 <1.[address] [employer] [facility] Comment: HCV antibody was non-reactive. There is no laboratory evidence of HCV infection. In most cases, no further action is required. However, if recent HCV exposure is suspected, a test for HCV RNA (test code 86650) is suggested. For additional information please refer to http://education.[address].Taskmit/faq/OFZ16e3 (This link is being provided for informational/ educational purposes only.) 11/17/2022 7:27 AM CDT 11/18/2022 12:45 AM CDT Narrative Resulting Agency Comment Performing Organization Information: Site ID: [place] Name: [email or web address] [facility] Address: [address] [address] Director: Maddie Brewer MD us Katie [facility] Final Resul t Performing Organization Address City/[facility]/ZIP Co de Phone Number [employer] MICHAEL PERALTA [employer] MICHAEL [facility] [address] [place] [address], from Last 3 Months or Most Recently Relevant to Health Maintenance Insurance [employer] Care Teams Pulp And Paper Tester Relationship Specialty Start Date End Date Katie Arriaza APNP [address] [place] [address] PCP - General NURSE PRACTITIONER 06/19/19
--- OUTSIDE RECORDS SUMMARY | 2025-04-15 00:11 | XMS_ITS | Clinical Summary ---
Author Organization [facility] Address [address] [place] [address] Care Team Providers Care Disc Inspector Name Role Phone Abdifatah Miguel MD Primary Care Provider [phone] Allergies No known active allergies Medications estradioL [...] phlebectomies. Assessment & Plan (08/09/2023 11:51 AM SAFETY ASSOCIATE): Impression: Patient complains of heaviness and discomfort [...] on file Legal Sex Female 12:17 PM SAFETY ASSOCIATE Gender Identity Not on file Sexual Orientation Not on file Obstetrics History Last Filed Vital Signs Vital Sign Reading Time Taken Comments Blood Pressure 135/83 11/16/2023 8:29 AM CDT Pulse 85 11/16/2023 8:29 AM CDT Temperature - - Respiratory Rate - - Oxygen Saturation 93% 11/16/2023 8:29 AM CDT Inhaled Oxygen Concentration - - Weight 95.3 kg (210 lb) 08/08/2023 2:10 PM SAFETY ASSOCIATE Height 167.6 cm (5' 6) 08/08/2023 2:10 PM SAFETY ASSOCIATE Body Mass Index 33.89 08/08/2023 2:10 PM SAFETY ASSOCIATE Plan of Treatment Health Maintenance Due Date [...] patient's age to complete this topic Insurance [facility] HMO/PPO Address: [facility] [address] [place] [address] Care Teams Disc Inspector Relationship Specialty Start Date End Date Abdifatah Miguel MD [address] [facility] [address] [place] [address] PCP - General Obstetrics and Gynecology 07/11/23
--- OUTSIDE RECORDS SUMMARY | 2025-04-15 00:11 | XMS_ITS | Clinical Summary ---
Author Organization [facility] Stacy Carey Address [address] [place] [address] Care Team Providers Care Personnel Consultant Name Role Phone Katie Arriaza NP Primary [...] on file Legal Sex Female 8:24 AM RETAIL BRANCH MANAGER Gender Identity Not on file Sexual Orientation Not on file Last Filed Vital Signs Vital Sign Reading Time Taken Comments Blood Pressure 114/74 10/11/2019 2:35 PM RETAIL BRANCH MANAGER Pulse 89 10/11/2019 2:35 PM RETAIL BRANCH MANAGER Temperature 36.7 C (98 F) 10/11/2019 2:35 PM RETAIL BRANCH MANAGER Respiratory Rate - - Oxygen Saturation 98% 10/11/2019 2:35 PM RETAIL BRANCH MANAGER Inhaled Oxygen Concentration - - Weight 89.9 kg (198 lb 4.8 oz) 10/11/2019 2:35 P M RETAIL BRANCH MANAGER Height 170.2 cm (5' 7) 10/11/2019 2:35 PM RETAIL BRANCH MANAGER Body Mass Index 31.06 10/11/2019 2:35 PM RETAIL BRANCH MANAGER Plan of Treatment Health Maintenance Due Date [...] 2021 INFLUENZA VACCINE (#1) 2025 Care Teams Personnel Consultant Relationship Specialty Start Date End Date Katie Arriaza NP [address] [place] [phone] PCP - General NURSE PRACTITIONER 09/20/19
[2025-04-15 06:48] VITALS: BP 125/89; PULSE 71; RESP 18; TEMP 36.6; O2SAT 98; BMI 35.4
--- NOTE | 2025-04-15 07:09 | WPDANESEPPF ---
Anes - Initial Pre Proc Eval Procedure: Operation Date: 04/15/25 08:00 Proposed Procedures p EGD & Screening Colonoscopy - Esau Rae MD Date/Time: 04/15/25 07:09 Surgeon: Esau Rae MD Pre Op Diagnosis: Gastro-esophageal reflux disease without esophagit Patient Data Age: 49 Gender: F Height: 1.68 m Weight: 99.5 kg Last Vital Signs Temp 36.6 C 04/15/25 06:48 Pulse 71 04/15/25 06:48 Resp 18 04/15/25 06:48 BP 125/89 04/15/25 06:48 Pulse Ox 98 04/15/25 06:48 O2 Del Method Room Air 04/15/25 06:48 Allergies Allergy/AdvReac Type Severity Reaction Status Date / Time No Known Allergies Allergy Verified 04/15/25 06:57 Home Medications ?Medication ?Instructions ?Recorded ?Confirmed ?Type cholecalciferol (vitamin D3) 25 75 mcg PO DAILY 12/15/20 04/15/25 History mcg (1,000 unit) tablet (Vitamin D3) glucosamine 375 la-gyiizelqs-ozc 1 tablet PO DAILY 12/15/20 04/15/25 History no1 500 mg-C 15 mg-stephanie 0.5 mg tablet (Hifnrdisgzx-Tmeocqevpto-CIR Complex) omega-3 fatty acids-vitamin E 2 cap PO DAILY 12/15/20 04/15/25 History 1,000 mg capsule meloxicam 15 mg tablet (Mobic) 15 mg PO DAILY #30 tabs 03/02/21 04/15/25 Rx DHEA Progesterone 5 mg PO DAILY 03/26/25 04/15/25 History FIsh Oil PO 03/26/25 03/26/25 History Glucosamine See Rx Instructions PO .COMPLEX 03/26/25 04/15/25 History Magnesium PO 03/26/25 03/26/25 History Testosterone/Estrogen subdermal 03/26/25 03/26/25 History VItamin B12 PO 03/26/25 03/26/25 History Vitamin C PO 03/26/25 03/26/25 History fexofenadine 180 mg tablet 180 mg PO DAILY 03/26/25 04/15/25 History (Sintia Allergy) Patient hx anesthesia problems: none Family hx anesthesia problems: none Results Review: All pre-operative results and documents have been reviewed as part of the pre-operative evaluation. [facility] Past Medical History Medical History (Updated 04/15/25 @ 07:09 by Ivan Tran DO) GERD (gastroesophageal reflux disease) Osteoarthritis Anxiety Degenerative arthritis of knee, bilateral Headache Surgical History Surgical History History of hysterectomy Tear of medial meniscus of left knee Left knee scope December 22, 2020 -partial meniscectomy and synovectomy History of arthroscopic knee surgery right x2, left x2 Family History Family History Other Alcohol abuse Cancer Heart disease Social History Social History (Updated 03/26/25 @ 09:28 by Brittnee Franco CMA) Years smoked: 2 Smoking status: Never smoker Tobacco type: cigarettes Second hand tobacco smoke exposure: No Alcohol intake: former 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 Substance use: former Substance use type: marijuana Other substance usage details: [facility] Living arrangements: with family 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 Informed Consent: The patient's anesthetic plan and its attendant risks and benefits were discussed with the patient/family/POA. Questions were solicited and answers provided to the satisfaction of the patient/family/POA.
[2025-04-15] MEDS: LACTATED RINGERS 1,000 ML 150 ML IV CONT (07:11)
--- NOTE | 2025-04-15 07:55 | PM.HPGS ---
History of Present Illness History of Present Illness Consent: Risks, benefits, and alternatives have been discussed and questions answered. Patient agrees to proceed with procedure. Chief complaint: Gastro-esophageal reflux disease without esophagit Narrative: Lovely Torres is a 49 year old female with gerd on famotidine prn, also screening colonoscopy Review of Systems Review of Systems: All systems reviewed & are unremarkable except as noted in HPI and below PMFSH Past Medical History Medical History (Updated 04/15/25 @ 07:56 by Esau Rae MD) Colon cancer screening GERD (gastroesophageal reflux disease) Osteoarthritis Anxiety Degenerative arthritis of knee, bilateral Headache Surgical History Surgical History History of hysterectomy Tear of medial meniscus of left knee Left knee scope December 22, 2020 -partial meniscectomy and synovectomy History of arthroscopic knee surgery right x2, left x2 Family History Family History Other Alcohol abuse Cancer Heart disease Social History Social History (Updated 03/26/25 @ 09:28 by Brittnee Franco CMA) Years smoked: 2 Smoking status: Never smoker Tobacco type: cigarettes Second hand tobacco smoke exposure: No Alcohol intake: former 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 Substance use: former Substance use type: marijuana Other substance usage details: CBD [employer] Living arrangements: with family 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, 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 Gender identity (if verbalized by the patient): Female Spiritual care concerns: No Meds Home Medications and Allergies Home Medications ?Medication ?Instructions ?Recorded ?Confirmed ?Type cholecalciferol (vitamin D3) 25 75 mcg PO DAILY 12/15/20 04/15/25 History mcg (1,000 unit) tablet (Vitamin D3) glucosamine 375 yg-vpkfhzkhw-bmd 1 tablet PO DAILY 12/15/20 04/15/25 History no1 500 mg-C 15 mg-stephanie 0.5 mg tablet (Udnovnqeyyy-Tenonzbhtlf-XLH Complex) omega-3 fatty acids-vitamin E 2 cap PO DAILY 12/15/20 04/15/25 History 1,000 mg capsule meloxicam 15 mg tablet (Mobic) 15 mg PO DAILY #30 tabs 03/02/21 04/15/25 Rx DHEA Progesterone 5 mg PO DAILY 03/26/25 04/15/25 History FIsh Oil PO 03/26/25 03/26/25 History Glucosamine See Rx Instructions PO .COMPLEX 03/26/25 04/15/25 History Magnesium PO 03/26/25 03/26/25 History Testosterone/Estrogen subdermal 03/26/25 03/26/25 History VItamin B12 PO 03/26/25 03/26/25 History Vitamin C PO 03/26/25 03/26/25 History fexofenadine 180 mg tablet 180 mg PO DAILY 03/26/25 04/15/25 History (Sintia Allergy) Allergies Allergy/AdvReac Type Severity Reaction Status Date / Time No Known Allergies Allergy Verified 04/15/25 06:57 Vital Signs Vital Signs - 24 hr 04/15/25 06:48 Temperature 97.9 F Pulse Rate 71 Respiratory Rate 18 Blood Pressure 125/89 Pulse Oximetry 98 Oxygen Delivery Room Air Exam Const: General: comfortable and no acute distress HENMT: Face/Nose/Sinus: Normal nares present Eyes: General: appearance normal, both eyes and all related structures Neck: Neck: no JVD Resp: Auscultation: clear to auscultation bilaterally Cardio: Rate: regular rate Rhythm: regular rhythm GI: Inspection: non-distended GI Palp: Yes Soft to palpation Skin: General skin exam: normal color Neuro: Speech: normal speech Extrem: General: normal to inspection Psych: Mental Status: mental status grossly normal Assessment and Plan Assessment and plan (1) GERD (gastroesophageal reflux disease): Code(s): K21.9 - Gastro-esophageal reflux disease without esophagitis Status: Acute Assessment and Plan: egd (2) Colon cancer screening: Code(s): Z12.11 - Encounter for screening for malignant neoplasm of colon Status: Acute Assessment and Plan: colonoscopy
--- NOTE | 2025-04-15 08:12 | S_PTH ---
PATIENT: Lovely Torres LOC: [facility]#:[id number] AGE/SX: 49/F ROOM: RE04/15/[address]: Esau Rae MD : 1975 BED: DIS: 04/15/2025 SPEC #: [id number] RECD: 04/15/25 10:29 STATUS: OJ REPatricia #: [id number] RM: 04/15/25 08:[address]: Esau Rae DEPT: [facility] RECD BY: Janice Travis ENTERED: 04/15/25 10:29 SP TYPE: Surgical OTHR DR: Katie Arriaza, CRYPTOLOGIC TECHNICIAN Tissues: A - Gastric Biopsy Procedures: Hematoxylin and Eosin Stain Gross and Microscopic Level 4
--- NOTE | 2025-04-15 08:13 | SUR.OPER ---
EGD ended 805 colonoscopy started 811
[2025-04-15 08:25] VITALS: BP 107/72; PULSE 74; RESP 19; O2SAT 100
[2025-04-15 08:35] VITALS: BP 109/77; PULSE 67; RESP 19; O2SAT 97
[2025-04-15 08:45] VITALS: BP 123/86; PULSE 71; RESP 15; O2SAT 100
== END 2025-04-15 08:57 | disposition home or self-care (01) ==
PROVIDERS: PCP Registered Nurse; Visit Provider Internal Medicine Gastroenterology
PROC: 0DJ08ZZ Inspection of Upper Intestinal Tract, Via Natural or Artificial Opening Endoscopic (ICD-10-PCS; CPT 45378; principal; 2025-04-15 08:00)
DX: Z12.11 Encounter for screening for malignant neoplasm of colon (principal); K64.8 Other hemorrhoids; K21.00 Gastro-esophageal reflux disease with esophagitis, without bleeding; K29.70 Gastritis, unspecified, without bleeding; F41.9 Anxiety disorder, unspecified; M17.0 Bilateral primary osteoarthritis of knee; F12.90 Cannabis use, unspecified, uncomplicated; E66.9 Obesity, unspecified; Z68.35 Body mass index [BMI] 35.0-35.9, adult; Z98.890 Other specified postprocedural states; Z80.9 Family history of malignant neoplasm, unspecified; Z82.49 Family history of ischemic heart disease and other diseases of the circulatory system
CPT/HCPCS: 43239; 45378; 88305; J2003; J2704; J7120

== ENCOUNTER 2025-07-03 12:30 | Outpatient (RCR) | payer OTHER, SELFPAY ==
--- NOTE | 2025-05-08 17:28 | OPREHPOC ---
Outpatient Therapy Plan of Care This is a Multidisciplinary Plan of Care that may contain components documented by all disciplines (PT, OT, and ST.) PT Problem 1 PT Problem #1 Knowledge Deficit PT Goal 1 Goal / Goal Update Patient to demonstrate independence with HEP for improved self-reliance of symptom management. Target Visit 8 PT Problem 2 PT Problem #2 Pain PT Goal 1 Goal / Goal Update 1. Patient to decrease subjective reports of L knee pain to <5/10 for 2 consecutive weeks for improved ADL tolerance. 2. Patient to decrease subjective reports of R knee pain to <5/10 for 2 consecutive weeks for improved ADL tolerance. Target Visit 8 PT Problem 3 PT Problem #3 Impaired Strength PT Goal 1 Goal / Goal Update 1. Patient to demonstrate LILLY hip strength >=5/5 for improved functional stability required for ADLs. 2. Patient to demonstrate LILLY knee strength >=5/5 for improved functional stability required for ADLs. 3. Patient to complete floor transfers with no reported knee pain or cueing required to ensure correct mechanics and reduce potential injury. Target Visit 8 PT Problem 4 PT Problem #4 Impaired Range of Motion PT Goal 1 Goal / Goal Update 1. Patient to demonstrate an increase of L knee AROM flexion of 125 deg to improve mobility required for gait/stair negotiation. 2. Patient to demonstrate an increase of R knee AROM of 0-120 deg to improve mobility required for gait/stair negotiation. Target Visit 8
--- NOTE | 2025-05-08 17:28 | PTOPEVAL1 ---
Assessment and note entered by Jazmin Gutiérrez, PT Evaluation Information Assessment Status Evaluation Diagnosis LILLY knee osteoarthritis ICD-10 Condition Codes (PT) Pain in right knee M25.561,Pain in left knee M25. 562 Subjective Information Primary Complaint: LILLY Knee Pain L>R History of current condition: Pt received injections and a steroid pack from her ortho in early March. She was in pain for about a week afterwards and started doing some exercises. Her pain has been reduced and only has extreme pain at the end of the day. She reports having knee pain for years and she wants to hold off on knee replacements as long as possible. Sxs made worse with: laying on her stomach due to pressure in the front, end of the day, down stairs , prolonged walking/standing, squatting Sxs improved with: injections, steroid pack CLOF: progressively better since injections, improved sleep quality PLOF: no limitations Reported Pain Level Pain Score 0: Self Report Additional Pain Score Comments ant knee pain on the R, medial/inf knee on the L Assessment PT Clinical Summary Pt is a 50 year old female who presents to physical therapy with a primary complaint of LILLY knee pain L>R, progressively improving since cortisone injections in March. Pt demonstrates LILLY hip and knee weakness leading to gait deficits and improper loading and force absorption, and mild deficits in knee ROM that limit their ability to perform ADLs. Pt will benefit from skilled physical therapy to address the above listed deficits and return to PLOF. HEP instructed and written handout provided, EX tolerated well with no adverse effects to note post-session. Pt was educated on importance of adherence to HEP. Pt was also educated on anatomy, prognosis, home modalities, and PT POC. Plan of Care Interventions Aquatic Therapy,Electrical Stimulation,Gait Training,Hot Pack/Cold Pack,Intermittent Compression Pump,Manual Therapy,Neuro Re-education ,Patient/Caregiver Education,Therapeutic Activities,Therapeutic Exercise,Self-Care/Home Management,Ultrasound Other Interventions taping, cupping, dry needling PT Services Indicated No Treatment Frequency and 1-2x/wk for 8 sessions Duration These treatments will address the objective and functional deficits as defined above. The patient will be advanced safely and appropriately in order for the patient to progress towards his/her prior level of function. Additional exercises will be introduced and as well as a comprehensive home exercise program upon discharge, if needed, ?to ensure carryover of functional gains achieved in the clinic. This treatment plan has been reviewed and agreement upon by the patient.
--- NOTE | 2025-05-29 14:19 | PCPTNOTE ---
Pt canceled visit today as she had no transportation and is going out of town.
--- NOTE | 2025-07-03 13:27 | PTOPDC ---
Assessment and note entered by Kristi Andres, PT Discharge Information Assessment Status Discharge Diagnosis LILLY knee osteoarthritis ICD-10 Condition Codes (PT) Pain in right knee M25.561,Pain in left knee M25. 562 Subjective Information Primary Complaint: LILLY Knee Pain L>R Pt reports that pain is still in the same place and same level not as bad now but still persisting . States she is aware of the need to undergo knee replacements. She is appreciative of the knowledge and this PT program she participated in, When she first started therapy, she felt pinched in the knee, feels snapping and now she feels that knees are more stable. Reported Pain Level Pain Score 0: Self Report Additional Pain Score Comments ant knee pain on the R, medial/inf knee on the L; nenita/grabbing pain everynight Assessment PT Clinical Summary Pt received a total of 7 treatment sessions and demos good progress in mobility and strength, however she continue to feel the pain. Next plan of care indicated is surgical procedure and patient is aware. She received education with regards to HEP compliance in order to maintain gains in therapy. Pt verbalized understanding and requested to be discharged from therapy at this time. Skilled PT discontinued. Plan of Care PT Services Indicated No
== END 2025-07-03 15:45 | disposition home or self-care (01) ==
LOC: ANHPT 12:30
PROVIDERS: PCP Registered Nurse; Visit Provider Orthopaedic Surgery
DX: M17.0 Bilateral primary osteoarthritis of knee (principal); M23.204 Derangement of unspecified medial meniscus due to old tear or injury, left knee; Z98.890 Other specified postprocedural states
CPT/HCPCS: 97110; 97140; 97161; 97530; 97750

== ENCOUNTER 2025-08-12 08:38 | Emergency (ER) | payer OTHER, SELFPAY ==
[2025-08-12 08:47] VITALS: BP 115/78; PULSE 100; RESP 18; TEMP 36.5; O2SAT 97
--- NOTE | 2025-08-12 08:47 | ED.SKABFB ---
HPI - Skin/Abscess/Foreign Bdy General Chief complaint: Skin/Abscess/Foreign Body Stated complaint: swollen face Source: patient Mode of arrival: ambulatory Limitations: no limitations History of Present Illness HPI narrative: This is a 41 y/o female that presents to the urgent care with reports of redness and dryness to her face since tuesday. Patient reports she started using and vitamin-C cream as well as her normal face products. She states that she noticed some dryness to her face, Tuesday worse appearing day red and irritated. Throughout the weekend she anesthetic continued to worsen. She did stop using vitamin-C cream after Tuesday. She states now her face is itchy and very dry. She denies any distress. No difficulty or changes in vision no difficulty swallowing. MD complaint: rash Onset (ago): day(s) (4) Location: face Severity: mild Relieving factors: none Exacerbating factors: none Context: new medication (new facial cream) Associated symptoms: itching Treatments prior to arrival: Benadryl and other Related Data Home Medications ?Medication ?Instructions ?Recorded ?Confirmed ?Last Taken ?Type cholecalciferol (vitamin D3) 25 75 mcg PO DAILY 12/15/20 04/15/25 04/13/25 History mcg (1,000 unit) tablet (Vitamin D3) glucosamine 375 te-epfhblbkz-vak 1 tablet PO DAILY 12/15/20 04/15/25 04/13/25 History no1 500 mg-C 15 mg-stephanie 0.5 mg tablet (Dnjdvqoigyk-Joanizjnxnr-JSG Complex) omega-3 fatty acids-vitamin E 2 cap PO DAILY 12/15/20 04/15/25 04/13/25 History 1,000 mg capsule DHEA Progesterone 5 mg PO DAILY 03/26/25 04/15/25 04/14/25 History FIsh Oil PO 03/26/25 03/26/25 04/13/25 History Glucosamine See Rx Instructions PO .COMPLEX 03/26/25 04/15/25 04/13/25 History Magnesium PO 03/26/25 03/26/25 04/13/25 History Testosterone/Estrogen subdermal 03/26/25 03/26/25 04/13/25 History VItamin B12 PO 03/26/25 03/26/25 04/13/25 History Vitamin C PO 03/26/25 03/26/25 04/13/25 History fexofenadine 180 mg tablet 180 mg PO DAILY 03/26/25 04/15/25 04/13/25 History (Sintia Allergy) phentermine 37.5 mg tablet mg 08/12/25 Unknown History Allergies Allergy/AdvReac Type Severity Reaction Status Date / Time No Known Allergies Allergy Verified 08/12/25 08:40 Review of Systems Review of Systems: All systems reviewed & are unremarkable except as noted in HPI and below PMFSH Past Medical History Medical History Colon cancer screening GERD (gastroesophageal reflux disease) Osteoarthritis Anxiety Degenerative arthritis of knee, bilateral Headache Surgical History Surgical History History of hysterectomy Tear of medial meniscus of left knee Left knee scope December 22, 2020 -partial meniscectomy and synovectomy History of arthroscopic knee surgery right x2, left x2 Family History Family History Other Alcohol abuse Cancer Heart disease Social History Social History Years smoked: 2 Smoking status: Never smoker Tobacco type: cigarettes Second hand tobacco smoke exposure: No Alcohol intake: former 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 Substance use: former Substance use type: marijuana Other substance usage details: CBD CARAMELS Living arrangements: with family 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 no excoriation no vesicles Eyes: Conjunctivae: conjunctivae normal Pupils: Equal, round and reactive pupils present EOM: EOMs intact bilaterally Neck: Neck: normal visual inspection and no lymphadenopathy Chest: Chest palpation & inspection: normal inspection of the chest Resp: Effort & Inspection: normal respiratory effort Auscultation: clear to auscultation bilaterally Cardio: Rate: regular rate Rhythm: regular rhythm GI: Auscultation: normal bowel sounds Back/Spine/Pelvis: Back: no CVA tenderness Skin: General skin exam: normal color, dry skin and rashes Lesions: no lesions Trauma: no lacerations or abrasions Wounds: no wounds Hair: normal Nails: normal Neuro: General: patient oriented x3 Cranial nerves: Yes Nystagmus not present Speech: normal speech Gait exam (Neuro): Normal gait present Extrem: General: normal to inspection Psych: Mental Status: mental status grossly normal Affect: normal affect Attitude: cooperative Course Course Emergency Course: This is a 41 y/o female that presents to the urgent care with reports of redness and dryness to her face since tuesday. Patient reports she started using and vitamin-C cream as well as her normal face products. She states that she noticed some dryness to her face, Tuesday worse appearing day red and irritated. Throughout the weekend she anesthetic continued to worsen. She did stop using vitamin-C cream after Tuesday. She states now her face is itchy and very dry. She denies any distress. No difficulty or changes in vision no difficulty swallowing. vital signs stable on arrival discussed patient creams, cleansing, any use different products. Discussed with the patient avoiding vitamin c cream. discussed with her cleaning her face twice daily with non dyed non perfumed soap and warm water. Apply steroid cream only. Avoid any makeup until clear. Continue with OTC Benadryl. Oral steroids as prescribed. Follow-up with primary care provider next 2-3 days for further evaluation and exam, consider Dermatology if no further relief. Return emergency department urgent care with any recent signs or symptoms answered all questions to her satisfaction she is agreeable plan. Patient denies any further needs or concerns to be addressed prior to discharge Level of Care: Express Care Visit Vital Signs Vital signs: Vital Signs Temperature 97.7 F 08/12/25 08:47 Pulse Rate 100 08/12/25 08:47 Respiratory Rate 18 08/12/25 08:47 Blood Pressure 115/78 08/12/25 08:47 Pulse Oximetry 97 08/12/25 08:47 Oxygen Delivery Room Air 08/12/25 08:47 Temperature 97.7 F 08/12/25 08:47 Pulse Rate 100 08/12/25 08:47 Respiratory Rate 18 08/12/25 08:47 Blood Pressure 115/78 08/12/25 08:47 Pulse Oximetry 97 08/12/25 08:47 Oxygen Delivery Room Air 08/12/25 08:47 MDM MDM Narrative Medical decision making narrative: This is a 41 y/o female that presents to the urgent care with reports of redness and dryness to her face since tuesday. Patient reports she started using and vitamin-C cream as well as her normal face products. She states that she noticed some dryness to her face, Tuesday worse appearing day red and irritated. Throughout the weekend she anesthetic continued to worsen. She did stop using vitamin-C cream after Tuesday. She states now her face is itchy and very dry. She denies any distress. No difficulty or changes in vision no difficulty swallowing. vital signs stable on arrival discussed patient creams, cleansing, any use different products. Discussed with the patient avoiding vitamin c cream. discussed with her cleaning her face twice daily with non dyed non perfumed soap and warm water. Apply steroid cream only. Avoid any makeup until clear. Continue with OTC Benadryl. Oral steroids as prescribed. Follow-up with primary care provider next 2-3 days for further evaluation and exam, consider Dermatology if no further relief. Return emergency department urgent care with any recent signs or symptoms answered all questions to her satisfaction she is agreeable plan. Patient denies any further needs or concerns to be addressed prior to discharge Differential Diagnosis Differential Diagnosis: cellulitis, Eczema, allergic dermatitis, contact dermatitis Medical Records I have reviewed the following patient records and this information was taken into consideration when formulating the assessment and plan.: previous ER visits and previous hospitalizations Discharge Plan Discharge Clinical Impression: Rash of face Patient Disposition: Home Condition: Stable Instructions: Dermatitis (ED) Additional Instructions: wash face twice daily with non dyed non perfumed soap and warm water. Apply steroid cream only. Avoid any makeup until clear. Continue with OTC Benadryl. Oral steroids as prescribed. Follow-up with primary care provider next 2-3 days for further evaluation and exam, consider Dermatology if no further relief. Return emergency department urgent care with any recent signs or symptoms Patient Language: Mexican Prescriptions: New triamcinolone acetonide 0.1 % lotion 1 applic topical BID Qty: 60 0RF prednisone 10 mg tablet 10 mg PO BID Qty: 10 0RF No Action phentermine 37.5 mg tablet DHEA Progesterone 5 mg PO DAILY Rx Instructions: [id number] Testosterone/Estrogen subdermal FIsh Oil PO Magnesium PO VItamin B12 PO Vitamin C PO Glucosamine See Rx Instructions PO .COMPLEX Rx Instructions: 1 orally; fexofenadine [Sintia Allergy] 180 mg tablet 180 mg PO DAILY omega-3 fatty acids-vitamin E 1,000 mg Capsule 2 cap PO DAILY cholecalciferol (vitamin D3) [Vitamin D3] 25 mcg (1,000 unit) Tablet 75 mcg PO DAILY Pqyomnfhhjt-Rinja-JNH Complex 500-521-33-0.5 mg Tablet 1 tablet PO DAILY meloxicam [Mobic] 15 mg tablet 15 mg PO DAILY Qty: 30 1RF Follow-up/Referrals: Sofiya,BINA Wilson [Primary Care Provider] Time of Disposition: 09:12
--- OUTSIDE RECORDS SUMMARY | 2025-08-12 09:09 | XMS_ITS | Clinical Summary ---
[facility] Address [address] [place] [address] Care Team Providers Care Lobster Fisherman Name Role Phone Katie Arriaza ADMINISTRATIVE ASSISTANT FRONT DESK Primary Care Provider + Allergies No known [...] Legal Sex Female 8:24 AM DIRECTOR OF PRODUCT MARKETING Gender Identity Not on file Sexual Orientation Not on file Last Filed Vital Signs Vital Sign Reading Time Taken Comments Blood Pressure 114/74 10/11/2019 2:35 PM DIRECTOR OF PRODUCT MARKETING Pulse 89 10/11/2019 2:35 PM DIRECTOR OF PRODUCT MARKETING Temperature 36.7 C (98 F) 10/11/2019 2:35 PM DIRECTOR OF PRODUCT MARKETING Respiratory Rate - - Oxygen Saturation 98% 10/11/2019 2:35 PM DIRECTOR OF PRODUCT MARKETING Inhaled Oxygen Concentration - - Weight 89.9 kg (198 lb 4.8 oz) 10/11/2019 2:35 P M DIRECTOR OF PRODUCT MARKETING Height 170.2 cm (5' 7) 10/11/2019 2:35 PM DIRECTOR OF PRODUCT MARKETING Body Mass Index 31.06 10/11/2019 2:35 PM DIRECTOR OF PRODUCT MARKETING Plan of Treatment Health Maintenance Due Date [...] 2021 INFLUENZA VACCINE (#1) 2025 Care Teams Lobster Fisherman Relationship Specialty Start Date End Date Katie Arriaza NP [address] [place] [phone] PCP - General NURSE PRACTITIONER 09/20/19
--- OUTSIDE RECORDS SUMMARY | 2025-08-12 09:09 | XMS_ITS | Clinical Summary ---
Author Organization [facility] Address [address] [place] [address] Care Team Providers Care Tourist Cabin Keeper Name Role Phone Katie Arriaza Primary Care Provider [phone] Allergies No known active allergies Medications MARIJUANA [...] Aspart-Vit B6 (ZINC MAGNESIUM ASPARTATE OR) Active omeprazole (PRILOSEC) 20 MG capsule Take 1 capsule (20 mg total) by mouth daily. Active phentermine (ADIPEX-P) 37.5 MG tablet Take 1 tablet (37.5 mg total) by mouth daily. 5 Active meloxicam (MOBIC) 15 MG tabletIndications:P rimary osteoarthritis of both knees TAKE 1 TABLET DAILY 90 tablet 5 Active Active Problems Problem Noted Date Diagnosed Date Internal hemorrhoids 06/19/2019 Chronic daily headache 06/19/2019 BMI 32.0-32.9,adult 06/19/2019 Current moderate episode of major depressive disorder without prior episode 06/19/2019 Polyarthralgia 06/19/2019 Neck pain 06/19/2019 Primary osteoarthritis of both knees 06/19/2019 Bilateral carpal tunnel syndrome 06/19/2019 Paresthesias 06/19/2019 Family History Medical History Relation Comments Cancer [...] Sex Assigned at Female 09/13/2024 2:29 PM LATRINE CLEANER Legal Sex Female 8:49 AM CDT Gender Identity Not on file Sexual Orientation Not on file Last Filed Vital Signs Vital Sign Reading Time Taken Comments Blood Pressure 122/84 01/30/2025 8:54 AM CDT Pulse 80 01/30/2025 8:54 AM CDT Temperature 37.1 C (98.8 F) 01/30/2025 8:54 AM CDT Respiratory Rate 16 09/13/2024 2:29 PM LATRINE CLEANER Oxygen Saturation 96% 09/13/2024 2:29 PM LATRINE CLEANER Inhaled Oxygen Concentration - - Weight 97.4 kg (214 lb 12.8 oz) 01/30/2025 8:54 AM CDT Height 166.4 cm (5' 5.5) 01/30/2025 8:54 AM CDT Body Mass Index 35.2 01/30/2025 8:54 AM CDT Plan of Treatment Health Maintenance Due Date Last Done Comments COVID-19 Vaccine (2024-09 6 season) 2025 04/16/2021, 03/19/2021 Influenza Adult (#1) 2025 Annual Physical 09/13/2025 09/13/2024 DTaP, Tdap and Td Vaccines ( 1 - Tdap) 09/13/2025 Postponed from 1995 (Awaiting Documentation) Hepatitis B Vaccines (1 of 3 - 19+ 3-dose series) 09/13/2025 Postponed from 1995 (Patient Refused) Mammogram Screening 03/26/2027 03/26/2025, 11/25/2022 Colorectal Cancer Screening Colonoscopy (10 Years) 04/15/2035 04/15/2025 Hepatitis C Completed 11/17/2022 Colorectal Cancer Screening FIT-DNA (3 Years) Discontinued 11/19/2022, 11/19/2022 PHQ-2 (Physician [place]) Completed 09/13/2024 Hepatitis A Vaccines Aged Out No long er eligible based on patient's age to complete this topic Meningococcal B Vaccine Aged Out No l [...] Procedure Name Priority Date/Time Associated Diagnosis Comments COLONOSCOPY GENERIC (SCAN ORDER) 04/15/2025 MAMMOGRAM GENERIC (SCAN ORDER) 03/26/2025 COLOGUARD (EXACT SCIENCE) Routine 11/19/2022 5:00 AM CDT Colon cancer screening HEPATITIS C ANTIBODY W/RFX TO HCV RNA Routine 11/17/2022 7:27 AM CDT Need for hepatitis C screening test from Last 3 Months or Most Recently Relevant to Health Maintenance Results * COLONOSCOPY GENERIC (SCAN ORDER) (04/15/2025) 04/15/2025 [facility] Scanned SCANNING Final Resu lt * MAMMOGRAM GENERIC (SCAN ORDER) (03/26/2025) Anatomical Region Laterality Modality Other 03/26/2025 [facility] Scanned SCANNING Final Resu lt * COLOGUARD (EXACT SCIENCE) (11/19/2022 5:00 AM CDT) COLOGUARD RESULT Negative Negative [facility] (CLIA #:[id number]) Comment: NEGATIVE TEST RESULT. A negative Cologuard [...] (Maribel Morales al, N Engl J Med 2014;370(14):0297-6581) The normal value (reference range) for this assay is negative. COLOGUARD RE-SCREENING RECOMMENDATION: Periodic colorectal cancer screening is an important part of preventive healthcare for asymptomatic individuals at average risk for colorectal cancer. Following a negative Cologuard result, the [place] [employer] Society and U.S. Multi-Society Task Force screening guidelines recommend a Cologuard re-screening interval of 3 years. References: [place] [employer] Guideline for Colorectal Cancer Screening: https://www.cancer.org/cancer/ytdqr-iwdzru-jhyglq/nbnkdzucm-snfpucdve-tgkbmaj/ac s-rec ommendations.html.; Tacos URENA, Rod CR, Donta SullivanK, Colorectal Cancer Screening: Recommendations for Physicians and Patients from the U.S. Multi-Society Task Force on Colorectal Cancer Screening , Am J Gastroenterology 2017; 112:7386-7391. TEST DESCRIPTION: Composite algorithmic analysis of stool [...] (Maribel Morales al, N Engl J Med 2014;370(14):5743-8762.) Cologuard may produce a false negative or false positive result (no colorectal cancer or precancerous polyp present at colonoscopy follow up). A negative Cologuard test result does not guarantee the absence of CRC or advanced adenoma (pre-cancer). The current Cologuard screening interval is every 3 years. ([place] [employer] Society and U.S. Multi-Society Task Force). Cologuard performance data in a 10,000 patient pivotal study using colonoscopy as the reference method can be accessed at the following location: www.[employer]/results. Additional description of the Cologuard test process, warnings and precautions can be found at www.cologWeeWorldrd.com. STOOL STOOL SPECIMEN / Unknown 11/19/2022 5:00 AM CDT 11/22/2022 12:41 AM CDT Katie [facility] FARIBA DANGELO Final Result [facility] [place] [address] [place] [address], [facility] (CLIA #:[id number]) [address] [address] * HEPATITIS C ANTIBODY W/RFX TO HCV RNA ([facility] ONLY) (11/17/2022 7:27 AM CDT) HEPATITIS C AB NON-REACT CHETAN NON-REACT CHETAN [facility] SIGNAL TO CUTOFF 0.03 <1.00 [facility] Comment: HCV antibody was non-reactive. There is no laboratory evidence of HCV infection. In most cases, no further action is required. However, if recent HCV exposure is suspected, a test for HCV RNA (test code 74687) is suggested. For additional information please refer to http://education.[employer]isle[employer]/faq/OYQ81c9 (This link is being provided for informational/ educational purposes only.) 11/17/2022 7:27 AM CDT 11/18/2022 12:45 AM CDT Narrative Resulting Agency Comment Performing Organization Information: Site ID: [place] Name: [facility] Address: [address] [place] [address] Director: Maddie Brewer MD us Katie [facility] Final Resul t [facility] MICHAEL PERALTA [facility] [address] [place] [address] from Last 3 Months or Most Recently Relevant to Health Maintenance Insurance R Care Teams Tourist Cabin Keeper Relationship Specialty Start Date End Date Katie Arriaza APNP [address] [place] [id number] PCP - General NURSE PRACTITIONER 06/19/19
--- OUTSIDE RECORDS SUMMARY | 2025-08-12 09:09 | XMS_ITS | Clinical Summary ---
Author Organization [facility] Address [address] [place] [address] Care Team Providers Care Glue Cook Name Role Phone Abdifatah Miguel MD Primary Care Provider [phone] [phone] Allergies No known active allergies Medications estradioL [...] phlebectomies. Assessment & Plan (08/09/2023 11:51 AM BELT PRESS OPERATOR): Impression: Patient complains of heaviness and discomfort [...] on file Legal Sex Female 12:17 PM BELT PRESS OPERATOR Gender Identity Not on file Sexual Orientation Not on file Last Filed Vital Signs Vital Sign Reading Time Taken Comments Blood Pressure 135/83 11/16/2023 8:29 AM CDT Pulse 85 11/16/2023 8:29 AM CDT Temperature - - Respiratory Rate - - Oxygen Saturation 93% 11/16/2023 8:29 AM CDT Inhaled Oxygen Concentration - - Weight 95.3 kg (210 lb) 08/08/2023 2:10 PM BELT PRESS OPERATOR Height 167.6 cm (5' 6) 08/08/2023 2:10 PM BELT PRESS OPERATOR Body Mass Index 33.89 08/08/2023 2:10 PM BELT PRESS OPERATOR Plan of Treatment Health Maintenance Due Date Last Done Comments Breast Cancer Screening-Mammogram 1976 Cervical Cancer Screening 1976 Colon Cancer Screening-Colonoscopy 1976 Depression Screening 1976 Hepatitis C Screening 1976 DTaP/Tdap/Td Vaccine (1 - Tdap) 1987 Hepatitis B Screening 1994 Regular Well Visit/Exam 18-64 1994 Covid-19 Vaccine (3 2024-2 6 season) 2025 04/16/2021, 03/19/2021 Influenza Vaccine (#1) 2025 Pneumococcal vaccine <65 Aged Out No longer eligible based on patient's age to complete this topic Insurance [facility] HMO/PPO Address: [facility] [id number] [place] [phone] Care Teams Glue Cook Relationship Specialty Start Date End Date Abdifatah Miguel MD [address] [place] [address] PCP - General Obstetrics and Gynecology 07/11/23
--- OUTSIDE RECORDS SUMMARY | 2025-08-12 09:09 | XMS_ITS | Clinical Summary ---
Author Organization [facility] Address [address] [place] [address] Care Team Providers Care Vehicle Fuel Systems Converter Name Role Phone Sabas Acosta MD Primary Care Provider Source Comments [facility],non-owned Affiliates and Associated Physician Practices is amultiple site organization consisting of ambulatory clinics and hospital sitesin [place], [place], [place] and [place]. This disclosure is being madepursuant to the Care Everywhere program and may not contain all information available regarding this patient. Last updated 18.[employer] [facility] Allergies No known active allergies Medications * [...] 3-dose series) 1995 SCREENING FOR DIABETES 01/26/2019 DEPRESSION SCREENING 08/22/2024 COVID-19 VACCINE (1 - 2024-2 6 season) 2025 INFLUENZA VACCINE (#1) 2025 ZOSTER VACCINE (1 [...] patient's age to complete this topic Insurance [facility] SELF PAY NO INSURANCE Member Subscriber Plan / Payer (Ef fective for All Dates) Name:Deep Torres Member ID:Not on file Relation to Subscriber:Not on file Name:DEEP TORRES Subscriber ID:Not on file (Home) Address: [address] [place] [phone] Payer ID:Not on file Group ID:Not on file Type:Self Pay Address: [place], [place] Care Teams Vehicle Fuel Systems Converter Relationship Specialty Start Date End Date Sabas Acosta MD [address] [place] [phone] PCP - General 01/03/18
== END 2025-08-12 09:14 | disposition home or self-care (01) ==
PROVIDERS: Emergency Provider Nurse Practitioner Family; PCP Registered Nurse
DX: R21 Rash and other nonspecific skin eruption (principal); K21.9 Gastro-esophageal reflux disease without esophagitis; M19.90 Unspecified osteoarthritis, unspecified site
CPT/HCPCS: 99213; G0463